=== PATIENT | female | born 1990 | race Caucasian/White ===

== ENCOUNTER 2025-03-01 07:33 | Emergency (ER) | payer MEDICAID, OTHER ==
[~2025-03-01] VITALS: Ht 167.6 cm; Wt 54.6 kg
--- NOTE | 2025-03-01 07:45 | ED.PDOC ---
Epistaxis- HPI HPI Comments 34-year-old female brought in by EMS presents with a chief complaint of epistaxis. Patient mentions that for the last 2 osorio she has been having intermittent nosebleeds. Patient reports that she recently got surgery on her nose to open up her sinuses. Patient mentions that she was supposed to see the doctor who performed the procedure today, but could not get bleeding under control. Patient mentions that she called the office and they told her to call [phone] if ever happened again. Time Seen by MD: 07:35 Reviewed Notes: Medications, Allergies Allergies: Coded Allergies: NO KNOWN ALLERGIES (Unverified , 03/01/25) Information Source: Patient Mode of Arrival: EMS Severity: Bleeding Uncontrolled Timing: Days Duration: Intermittent Prehospital treatment: Management Advisor Location: Both [facility]ises Mechanism: Spontaneous onset Use of: None History of: Recent nasal operation Last Tetanus: UTD Nose: Intranasal/Septum: Blood Bleeding Status: Active bleeding Bleeding Amount: Moderate Source: Both Past Medical History PAST MEDICAL HISTORY: Denies Surgical History: Denies all surgeries 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 Family History Family History: Reviewed,noncontributory to illness Social History Smoker: Non-Smoker Alcohol: Denies ETOH Use Drugs: Denies Drug Use Lives In: Home Constitutional: denies: chills, diaphoresis, fatigue, fever, malaise, sweats, weakness, others EENTM: reports: nose bleeding; denies: blurred vision, double vision, ear bleeding, ear discharge, ear drainage, ear pain, ear ringing, eye pain, eye redness, hearing loss, mouth pain, mouth swelling, nasal discharge, nose congestion, nose pain, photophobia, tearing, throat pain, throat swelling, voice changes, others Respiratory: denies: cough, hemoptysis, orthopnea, SOB at rest, shortness of breath, SOB with excertion, stridor, wheezing, others Cardiovascular: denies: chest pain, dizzy spells, diaphoresis, Dyspnea on exe rtion, edema, irregular heart beat, left arm pain, lightheadedness, palpitations, PND, syncope, others Gastrointestinal: denies: abdomen distended, abdominal pain, blood streaked bowels, constipated, diarrhea, dysphagia, difficulty swallowing, hematemesis, melena, nausea, poor appetite, poor fluid intake, rectal bleeding, rectal pain, vomiting, others Genitourinary: denies: abnormal vagina bleeding, burning, dyspareunia, dysuria, flank pain, frequency, hematuria, incontinence, pain, , vagina discharge, urgency, others Neurological: denies: dizziness, fainting, headache, left sided numbness, left sided weakness, numbness, paresthesia, pre-existing deficit, right sided numbness, right sided weakness, seizure, speech problems, tingling, tremors, weakness, others Musculoskeletal: denies: back pain, gout, joint pain, joint swelling, muscle pain, muscle stiffness, neck pain, others Integumetry: denies: bruises, change in color, change in hair/nails, dryness, laceration, lesions, lumps, rash, wounds, others Allergic/Immunocompromised: denies: Difficulty Healing, Frequent Infections, Hives, Itching, others Hematologic/Lymphatic: denies: anemia, blood clots, easy bleeding, easy bruising, swollen glands, others Endocrine: denies: excessive hunger, excessive sweating, excessive thirst, excessive urination, flushing, intolerance to cold, intolerance to heat, unexplained weight gain, unexplained weight loss, others Psychiatric: denies: anxiety, bipolar disorder, depression, hopeless, panic disorder, schizophrenia, sleepless, suicidal, others All Other Systems: Reviewed and Negative Physical Exam General Appearance: No Apparent Distress, Normal HEENT: Pharynx Normal, TMs Normal, Other (ACTIVE NOSE BLEED) Neck: Full Range of Motion, Non-Tender, Normal, Normal Inspection Respiratory: Chest Non-Tender, Lungs Clear, No Accessory Muscle Use, No Respiratory Distress, Normal Breath Sounds Cardiovascular: No Edema, No JVD, No Murmur, No Gallop, Normal Peripheral Pulses, Regular Rate/Rhythm Breast Exam: Deferred Gastrointestinal: No Organomegaly, Non Tender, No Pulsatile Mass, Normal Bowel Sounds, Soft Genitalia: Deferred Pelvic: Deferred Rectal: Deferred Extremities: No calf tenderness, Normal capillary refill, Normal inspection, Normal range of motion, Non-tender, No pedal edema Musculoskeletal : Apperance: Normal Neurologic: Alert, advance scout II-XII nml as Tested, No Motor Deficits, Normal Affect, Normal Mood, No Sensory Deficits Cerebellar Function: Normal Reflexes: Normal Skin: Dry, Normal Color, Warm Lymphatic: No Adenopathy Was a procedure done? Was a procedure done?: Yes Sedation Sedation?: No Nasal Cautery and Pack Indicaton: Anterior epitaxis Location of packing: Bilateral Packing: Inflatable balloon Informed consent obtained: Yes Risks/benefits/alt described: Yes Differential Diagnosis (NSB) Differential Diagnosis: Anterior Nasal Bleed, Posterior Nasal Bleed X-Ray, Labs, Meds, VS Vital Signs Date Time Temp Pulse Resp B/P (MAP) Pulse Ox O2 Delivery O2 Flow Rate FiO2 03/01/25 08:10 101 13 97 Room Air* 0 21 03/01/25 08:10 98.3 101 13 154/103 (120) 97 98.3 03/01/25 07:40 98.7 87 16 148/99 (115) 98 98.7 Current Medications Medications (Trade) Dose Ordered Sig/[place] Route Start Time Stop Time Status Last Admin Oxymetazoline HCl (Afrin) 1 spr ONCE ONCE EACHNOSTRI 03/01/25 07:45 03/01/25 07:46 DC 03/01/25 08:39 Time of 1ST Reevaluation: 08:05 Reevaluation 1ST: Unchanged Patient Education/Counseling: Diagnosis, Treatment Family Education/Counseling: No Family Present Departure 1 Departure Time of Disposition: 10:53 (Patient presented with nosebleed after nasal surgery. Patient had her nose packed hemostasis was achieved. Patient will follow up with the ENT surgeon.) Impression: Primary Impression: Epistaxis Disposition: 01 HOME / SELF CARE / HOMELESS Condition: Stable Additional Instructions: You had a nosebleed. You had bilateral rhino rockets placed. It is important to follow up with your Ear Nose and Throat surgeon within 3 days. If your symptoms worsen or you have any other concerns please return to the emergency room. Discharged With: Self Critical Care Note Critical Care Time?: No Stability Stability form required: No Heart Score Heart Score: Heart Score Response (Comments) Value History N/A 0 EKG N/A 0 Age N/A 0 Risk Factors N/A 0 Troponin N/A 0 Total 0 I personally scribed for BUZZ AMBROCIO MD ([email or web address]) on 03/01/25 at 07:45. Electronically submitted by Andrea Gooden ([email or web address]). BUZZ AMBROCIO MD March 01, 2025 07:45
[2025-03-01 08:10] VITALS: PULSE 101; RESP 13; TEMP 98.3; O2SAT 97
[2025-03-01] MEDS: OXYMETAZOLINE HCL 0.05 % NASAL SPRAY 15ML EACHNOSTRI ONE (08:39)
[2025-03-01 11:12] VITALS: BP 122/95; PULSE 86; RESP 15; O2SAT 97
== END 2025-03-01 11:24 | disposition home or self-care (01) ==
LOC: EDBD 07:33 → ER 07:33
DX: R04.0 Epistaxis (principal)
CPT/HCPCS: 30901

== ENCOUNTER 2025-03-05 12:59 | Emergency (ER) | payer MEDICAID ==
[~2025-03-05] VITALS: Ht 167.6 cm; Wt 65.0 kg
--- NOTE | 2025-03-05 13:26 | ED.PDOC ---
Epistaxis- HPI HPI Comments 34 year old female presents to the ED via EMS with a chief compliant of epistaxis. Per EMS, patient was seen here on 03/01/25 due to nose bleed, had 2 rhino rocket placed, was told to get them removed on 03/04/25. Patient went to [facility] on , was told to leave rhino rocket in place for a week. Patient began experiencing nose bleed today around noon, called 911. Denies any PMHx as well as headache, nausea, vomiting, abdominal pain, chest pain, fever, chills. No other symptoms or modifying factors present at this time. Chief Complaint: Nose Bleed Time Seen by MD: 13:05 Primary Care Provider: UNKNOWN Reviewed Notes: Medications, Allergies Allergies: Coded Allergies: NO KNOWN ALLERGIES (Unverified , 03/01/25) Information Source: Patient, Emergency Med Personnel Timing: Hours Duration: Since onset Prehospital treatment: None Location: Both [facility] Mechanism: Spontaneous onset Circumstances: Unknown Use of: None History of: Nasal bleeding Nose: Intranasal/Septum: Blood Bleeding Status: No active bleeding Bleeding Amount: Mild Source: Both Past Medical History PAST MEDICAL HISTORY: Denies Surgical History (Other): nose suegery 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 Family History Family History: Reviewed,noncontributory to illness Social History Smoker: Non-Smoker Alcohol: Denies ETOH Use Drugs: Denies Drug Use Lives In: Home Constitutional: denies: chills, diaphoresis, fatigue, fever, malaise, sweats, weakness, others EENTM: reports: nose bleeding; denies: blurred vision, double vision, ear bleeding, ear discharge, ear drainage, ear pain, ear ringing, eye pain, eye redness, hearing loss, mouth pain, mouth swelling, nasal discharge, nose congestion, nose pain, photophobia, tearing, throat pain, throat swelling, voice changes, others Respiratory: denies: cough, hemoptysis, orthopnea, SOB at rest, shortness of breath, SOB with excertion, stridor, wheezing, others Cardiovascular: denies: chest pain, dizzy spells, diaphoresis, Dyspnea on exertion, edema, irregular heart beat, left arm pain, lightheadedness, palpitations, PND, syncope, others Gastrointestinal: denies: abdomen distended, abdominal pain, blood streaked bowels, constipated, diarrhea, dysphagia, difficulty swallowing, hematemesis, melena, nausea, poor appetite, poor fluid intake, rectal bleeding, rectal pain, vomiting, others Genitourinary: denies: abnormal vagina bleeding, burning, dyspareunia, dysuria, flank pain, frequency, hematuria, incontinence, pain, , vagina discharge, urgency, others Neurological: denies: dizziness, fainting, headache, left sided numbness, left sided weakness, numbness, paresthesia, pre-existing deficit, right sided numbness, right sided weakness, seizure, speech problems, tingling, tremors, we akness, others Musculoskeletal: denies: back pain, gout, joint pain, joint swelling, muscle pain, muscle stiffness, neck pain, others Integumetry: denies: bruises, change in color, change in hair/nails, dryness, laceration, lesions, lumps, rash, wounds, others Allergic/Immunocompromised: denies: Difficulty Healing, Frequent Infections, Hives, Itching, others Hematologic/Lymphatic: denies: anemia, blood clots, easy bleeding, easy bruising, swollen glands, others Endocrine: denies: excessive hunger, excessive sweating, excessive thirst, excessive urination, flushing, intolerance to cold, intolerance to heat, unexplained weight gain, unexplained weight loss, others Psychiatric: denies: anxiety, bipolar disorder, depression, hopeless, panic disorder, schizophrenia, sleepless, suicidal, others All Other Systems: Reviewed and Negative Physical Exam General Appearance: Moderate Distress, Normal HEENT: Other (Nasal packing) Neck: Full Range of Motion, Non-Tender, Normal, Normal Inspection Respiratory: Chest Non-Tender, Lungs Clear, No Accessory Muscle Use, No Respiratory Distress, Normal Breath Sounds Cardiovascular: No Edema, No JVD, No Murmur, No Gallop, Normal Peripheral Pulses, Regular Rate/Rhythm Breast Exam: Deferred Gastrointestinal: No Organomegaly, Non Tender, No Pulsatile Mass, Normal Bowel Sounds, Soft Genitalia: Deferred Pelvic: Deferred Rectal: Deferred Extremities: No calf tenderness, Normal capillary refill, Normal inspection, Normal range of motion, Non-tender, No pedal edema Musculoskeletal : Apperance: Normal Neurologic: Alert, rigger chief II-XII nml as Tested, No Motor Deficits, Normal Affect, Normal Mood, No Sensory Deficits Cerebellar Function: Normal Reflexes: Normal Skin: Dry, Normal Color, Warm Peripheral Pulses: 3+ Radial (R), 3+ Radial (L) Lymphatic: No Adenopathy Was a procedure done? Was a procedure done?: No Differential Diagnosis (NSB) Differential Diagnosis: Anterior Nasal Bleed X-Ray, Labs, Meds, VS Vital Signs Date Time Temp Pulse Resp B/P (MAP) Pulse Ox O2 Delivery O2 Flow Rate FiO2 03/05/25 15:57 84 18 110/70 (83) 98 03/05/25 15:56 80 14 98 Room Air* 0 21 03/05/25 14:10 101 17 99 Room Air 03/05/25 14:10 98.7 95 17 118/75 (89) 99 98.7 03/05/25 13:20 98.4 101 16 131/86 (101) 99 98.4 Patient alert. Has a nasal packing in place. No sign of any active bleeding. Vitals stable. Answering questions. Recently had a rhinoplasty at [facility]. She had bilateral rhino rockets pain Explained to the patient that bilateral can cause necrosis of the tissue. Was able to remove right nostril. No sign of any bleeding. Moisture in the right nostril. No bleeding. Was told to follow up with her primary care physician. Was told to come back if there is any problem. Time of 1ST Reevaluation: 15:27 Reevaluation 1ST: Improved Patient Education/Counseling: Diagnosis, Treatment, Prognosis, Need For Follow Up Family Education/Counseling: No Family Present Departure 1 Departure Time of Disposition: 15:28 Impression: Primary Impression: Epistaxis Disposition: 01 HOME / SELF CARE / HOMELESS Condition: Good Discharged With: Self Critical Care Note Critical Care Time?: No Stability Stability form required: No Heart Score Heart Score: Heart Score Response (Comments) Value History N/A 0 EKG N/A 0 Age N/A 0 Risk Factors N/A 0 Troponin N/A 0 Total 0 I personally scribed for JUJU COLLAZO MD ([email or web address]) on 03/05/25 at 13:26. Electronically submitted by Mica Scott ([email or web address]). I personally scribed for JUJU COLLAZO MD ([email or web address]) on 5/26/25 at 14:07. Electronically submitted by Mica Scott ([email or web address]). JUJU COLLAZO MD March 05, 2025 13:26
[2025-03-05 14:10] VITALS: TEMP 98.7
[2025-03-05 15:56] VITALS: PULSE 80; RESP 14; O2SAT 98
[2025-03-05 15:57] VITALS: BP 110/70; PULSE 84; RESP 18; O2SAT 98
== END 2025-03-05 16:21 | disposition home or self-care (01) ==
LOC: EDBD 12:59 → ER 13:06
DX: R04.0 Epistaxis (principal); Z98.890 Other specified postprocedural states

== ENCOUNTER 2025-03-06 17:09 | Inpatient (IN) | payer MEDICAID ==
[~2025-03-06] VITALS: Ht 167.6 cm; Wt 60.7 kg
--- NOTE | 2025-03-06 17:47 | ED.PDOC ---
History of Present Illness HPI Comments DOUG PETTY: HPI: Poor Historian. 34-year-old female presents to emergency department for evaluation of generalized weakness. Patient had septoplasty in January. She started having bilateral nosebleed this past . She came to the ER and had two rhino rockets placed bilaterally. She had one removed yesterday. The patient is on Augmentin. Patient started developing some weakness today where she feels very tired. Denies any active bleeding. Vitals: temperature of 97.7F, pulse of 105, respiratory rate of 16, blood pressure of 120/87, and a SpO2 of 98%RA. Past Medical History: Denies any Past Surgical History: Septoplasty REVIEW OF SYSTEMS: CONSTITUTIONAL: Denies acute: fever, diaphoresis, chills, HEAD: Denies acute: headache, photophobia Eyes: Denies acute: Double vision, vision loss, eye pain, eye discharge. EARS: Denies acute: tinnitus, hearing loss, ear discharge, ear pain, THROAT: Denies acute: sore throat, swelling, difficulty swallowing , pain with swallowing, change in voice. NECK: Denies acute: neck pain, neck swelling, stiff neck. HEART: Denies acute : chest pain, palpitations, LUNGS: Denies acute: SOB, wheezing, cough, hemoptysis ABDOMEN: Denies acute: abdominal pain, Nausea, Vomiting, diarrhea, melena , hematemesis, hematochezia SKIN: Denies acute: rash, redness, lesions, itchiness. EXTREMITIES: Denies acute: calf pain, numbness, tingling, weakness, denies pain in extremity. Denies acute: Low back pain. Neuro: Denies acute: focal neurological deficit, motor or sensory focal neurological deficit, tremors, seizure like activity, confusion, dizziness, change in mental status, loss of bowel or bladder function, cauda equina like symptoms. : Denies acute: dysuria, hematuria, flank pain, increase in urinary frequency. PSYCH: Denies acute: hallucination, suicidal ideation, homicidal ideation. FEMALE: Denies acute: abnormal vaginal bleeding, foul odor, unusual discharge. PHYSICAL EXAM: General: ----mild----acute distress, awake and alert. Head: normocephalic, atraumatic. Neck: supple, trachea is midline, no swelling. Throat: Normal phonation. Eyes:, no erythema, no purulent discharge, no proptosis, no icterus. Heart: regular tachycardia,, no significant murmur appreciated. Lungs: no apparent respiratory distress, Able to speak in full sentences. No wheezing, no rhonchi, no crackles. No stridors Clear to auscultation bilaterally. Abdomen: non tender to palpation, non distended, soft, no guarding, no rebound, + bowel sounds. Neuro: Awake, Alert, oriented to name, self, situation, follows commands GCS=15. Speech is normal. Skin: no petechia, no purpura, no cyanosis, slightly-pale, not jaundice. Lower extremities: --no - Pitting edema no deformity, no focal swelling, no calf TTP. Makes eye contact. moves all four extremities. Face: no apparent facial droop. Ambulating in the ED independently. ED COURSE: Chief Complaint: General Weakness Time Seen by MD: 17:30 Primary Care Provider: UNKNOWN Reviewed Notes: Nurses Notes, Allergies Allergies: Coded Allergies: NO KNOWN ALLERGIES (Unverified , 03/01/25) Information Source: Patient Mode of Arrival: Ambulatory Was a procedure done? Was a procedure done?: No Differential Dx Considerations may include: Includes but not limited to thyroid disease, encephalopathy, electrolyte abnormality, sepsis, infection, intracranial pathology, drug adverse effects, arrhythmia, kidney insufficiency, ACS, CVA, malignancy, anemia X-Ray, Labs, Meds, VS Vital Signs Date Time Temp Pulse Resp B/P (MAP) Pulse Ox O2 Delivery O2 Flow Rate FiO2 03/06/25 23:38 98.8 88 14 133/84 (100) 100 98.8 03/06/25 17:35 97.7 105 16 120/87 (98) 98 97.7 Lab Test 03/06/25 22:34 03/06/25 18:49 03/06/25 17:50 03/06/25 17:30 Range/Units Hemoglobin 9.5 #L 11.8 L 12.2-16.2 g/dL Hematocrit 27.9 #L 33.6 L 36.0-46.0 % Troponin I High Sensitivity < 3 L < 3 L </=34 ng/L White Blood Count 5.6 4.4-10.8 10^3/uL Red Blood Count 3.86 L 4.0-5.20 10^6/uL Mean Corpuscular Volume 86.8 80.0-100.0 fL Mean Corpuscular Hemoglobin 30.6 28.0-32.0 pg Mean Corpuscular Hemoglobin Concent 35.3 32.0-36.0 g/dL Red Cell Distribution Width 12.6 11.8-14.3 % Platelet Count 353 140-450 10^3/uL Mean Platelet Volume 7.9 6.9-10.8 fL Neutrophils (%) (Auto) 56.4 37.0-80.0 % Lymphocytes (%) (Auto) 23.2 10.0-50.0 % Monocytes (%) (Auto) 17.0 H 0.0-12.0 % Eosinophils (%) (Auto) 2.9 0.0-7.0 % Basophils (%) (Auto) 0.5 0.0-2.0 % Neutrophils # (Auto) 3.1 1.6-8.6 10 ^3/uL Lymphocytes # (Auto) 1.3 0.4-5.4 10 ^3/uL Monocytes # (Auto) 0.9 0-1.3 10 ^3/uL Eosinophils # (Auto) 0.2 0-0.8 10 ^3/uL Basophils # (Auto) 0 0-0.2 10 ^3/uL Nucleated Red Blood Cells 0.1 % Sodium Level 135 L 136-145 mmol/L Potassium Level 3.5 3.5-5.1 mmol/L Chloride Level 98 98-107 mmol/L Carbon Dioxide Level 30 20-31 mmol/L Anion Gap 7 5-15 Blood Urea Nitrogen 9 9-23 mg/dL Creatinine 0.67 0.550-1.02 mg/dL Glomerular Filtration Rate Calc 119 >90 mL/min BUN/Creatinine Ratio 13.4 10.0-20.0 Serum Glucose 125 H 74-106 mg/dL Lactic Acid Level 0.9 0.4-2.0 mmol/L Calcium Level 9.9 8.7-10.4 mg/dL Magnesium Level 2.3 1.6-2.6 mg/dL Total Bilirubin 0.2 0.2-1.0 mg/dL Aspartate Amino Transferase (AST) 13 13-40 U/L Alanine Aminotransferase (ALT) 13 7-40 U/L Alkaline Phosphatase 69 46-116 U/L Total Protein 8.2 5.7-8.2 g/dL Albumin 4.9 H 3.2-4.8 g/dL Urine Color Yellow Yellow Urine Clarity Clear Clear Urine pH 6.0 5.0-9.0 Urine Specific [place] 1.021 1.001-1.035 Urine Protein Trace H Negative Urine Ketones Negative Negative Urine Blood 3+ H Negative /uL Urine Nitrite Negative Negative Urine Bilirubin Negative Negative Urine Urobilinogen 2 H Negative mg/dL Urine Leukocyte Esterase Negative Negative /uL Urine RBC 190 0 - 4 /hpf Urine Microscopic WBC 5 0-5 /HPF Urine Squamous Epithelial Cells Mod <5 /hpf Urine Bacteria Few H None Seen /hpf Urine Mucus Few None Seen Urine Glucose Normal Normal mg/dL Current Medications Medications (Trade) Dose Ordered Sig/[place] Route Start Time Stop Time Status Last Admin Sodium Chloride 1,000 ml @ 1,000 mls/hr Q1H ONCE IV 03/06/25 17:30 03/06/25 18:29 DC 03/06/25 21:23 Sodium Chloride 1,000 ml @ 1,000 mls/hr Q1H ONCE IV 03/06/25 19:15 03/06/25 20:14 DC 03/06/25 21:23 [place] [id number] Ph: [phone] DIAGNOSTIC IMAGING Diagnostic Imaging Report : [id number] Signed PATIENT: DOUG PETTY ACCT: [id number] UNIT: [id number] : 1990 LOC: ER ROOM / BED: / AGE / SEX: 34 / F ADM STATUS: REG ER SERVICE [id number] ORDERING PHYSICIAN: INGA JAMES DO PROCEDURE(s): CXRP - CHEST PORTABLE REASON: gen weak ORDER NUMBER(s): [id number], ACCESSION NUMBER(s): [id number] INDICATION: gen weak TECHNIQUE: Frontal view of the chest. COMPARISON: None FINDINGS: Findings:. The heart and mediastinal contours are grossly unremarkable. There is no evidence of pleural disease. The lungs are clear. The bony structures of the chest are intact without fracture. IMPRESSION: 1. No evidence of acute disease. ATED BY: KELLY HERNANDEZ MD DICTATED DATE/TIME: 03/06/251811 SIGNED BY: KELLY HERNANDEZ MD SIGNED DATE/TIME: 03/06/251811 CC: Time of 1ST Reevaluation: 20:56 (As of this time, patient has not yet received any the fluids that were ordered.) Reevaluation 1ST: Unchanged Time of 2ND Reevaluation: 00:00 Reevaluation 2ND: Unchanged Patient Education/Counseling: Diagnosis, Treatment Family Education/Counseling: No Family Present Comments Patient presented with the above HPI.--generalized weakness, six months from secured lightheadedness----workup was initiated. patient was found with the above mentioned diagnosis. the following medications were ordered: please refer to order lists of meds and tests obtained by myself Dr. James. Patient ED course and VS have been stabilized. Patient has been reassessed in the ED and remained in a stable condition. Pertinent incidental findings were discussed with the patient and/or family. Patient/family voices understanding and is agreeable with plan. Patient has been observed in the ED adequate length of time to insure improvement/stability. Escalation of care considered: Consideration of escalation to observation or admission Patient is given 2 L normal saline bolus. Repeat H and H shows a drop in hemoglobin. Despite fluid resuscitation, patient is still feels weak and lightheaded when she stands up. Patient was ADMITTED to the medicine team for further evaluation and treatment of their presentation. All the reports of any imaging studies that were ordered by myself were reviewed by myself. Departure 1 Departure Time of Disposition: 23:06 Impression: Primary Impression: Symptomatic anemia Additional Impression: Lightheadedness Disposition: ADMITTED INPATIENT Admit to: Tele Condition: Guarded Discharged With: Self Heart Score Heart Score: Heart Score Response (Comments) Value History Slightly Suspicious 0 EKG Normal 0 Age <45 0 Risk Factors No known risk factors 0 Troponin Normal limit 0 Total 0 I personally scribed for INGA JAMES DO ([email or web address]) on 03/06/25 at 17:47. Electronically submitted by Monica Black ([email or web address]). I personally scribed for INGA JAMES DO ([email or web address]) on 03/07/25 at 01:06. Electronically submitted by Dominic Chapman ([email or web address]). I personally scribed for INGA JAMES DO ([email or web address]) on 03/07/25 at 01:07. Electronically submitted by Dominic Chapman ([email or web address]). INGA JAMES DO March 06, 2025 17:47
[2025-03-06 17:58] LABS: Urine Bacteria FEW /hpf (None Seen); Urine Blood 3+ /uL (Negative); Urine Clarity Clear (Clear); Urine Color Yellow (Yellow); Urine Mucus FEW (None Seen); Urine Protein, UAD TRACE (Negative); Urine Specific Gravity 1.021 (1.001-1.035); Urine Squamous Epithelial Cell MOD /hpf (<5); Urine Urobilinogen 2 mg/dL (Negative); Urine WBC 5 /HPF (0-5)
[2025-03-06 18:07] LABS: Basophils # (auto) 0 10 ^3/uL (0-0.2); Basophils % (auto) 0.5 % (0.0-2.0); Eosinophils # (auto) 0.2 10 ^3/uL (0-0.8); Eosinophils % (auto) 2.9 % (0.0-7.0); Hematocrit 33.6 % (36.0-46.0); Hemoglobin 11.8 g/dL (12.2-16.2); Lymphocytes # (auto) 1.3 10 ^3/uL (0.4-5.4); Lymphocytes % (auto) 23.2 % (10.0-50.0); Mean Corpuscular Hemoglobin 30.6 pg (28.0-32.0); Mean Corpuscular Hgb Conc. 35.3 g/dL (32.0-36.0); Mean Corpuscular Volume 86.8 fL (80.0-100.0); Monocytes # (auto) 0.9 10 ^3/uL (0-1.3); Neutrophils # (auto) 3.1 10 ^3/uL (1.6-8.6); Neutrophils % (auto) 56.4 % (37.0-80.0); Nucleated Red Blood Cells % 0.1 %; Platelet Count (auto) 353 10^3/uL (140-450); Red Blood Cells 3.86 10^6/uL (4.0-5.20); Red Cell Distribution Width 12.6 % (11.8-14.3); White Blood Cell 5.6 10^3/uL (4.4-10.8)
--- NOTE | 2025-03-06 18:14 | DVH ---
INDICATION: gen weak TECHNIQUE: Frontal view of the chest. COMPARISON: None FINDINGS: Findings:. The heart and mediastinal contours are grossly unremarkable. There is no evidence of pleu ral disease. The lungs are clear. The bony structures of the chest are intact without fracture. IMPRESSION: 1. No evidence of acute disease.
[2025-03-06 18:23] LABS: Alanine Aminotransferase 13 U/L (7-40); Alkaline Phosphatase 69 U/L (46-116); Anion Gap 7 (5-15); Aspartate Aminotransferase 13 U/L (13-40); BUN/Creatinine Ratio 13.4 (10.0-20.0); Calcium 9.9 mg/dL (8.7-10.4); Carbon Dioxide 30 mmol/L (20-31); Magnesium 2.3 mg/dL (1.6-2.6); Total Protein 8.2 g/dL (5.7-8.2)
[2025-03-06 18:27] LABS: Albumin 4.9 g/dL (3.2-4.8); Bilirubin, Total 0.2 mg/dL (0.2-1.0); Blood Urea Nitrogen 9 mg/dL (9-23); Chloride 98 mmol/L (98-107); Glucose 125 mg/dL (74-106); Potassium 3.5 mmol/L (3.5-5.1); Sodium 135 mmol/L (136-145)
[2025-03-06] MEDS: SODIUM CHLORIDE 0.9% 1,000 ML IV ONE ×2 (21:23)
[2025-03-06 22:42] LABS: Hematocrit 27.9 % (36.0-46.0); Hemoglobin 9.5 g/dL (12.2-16.2)
[2025-03-07] MEDS ORDERED: ACETAMINOPHEN 325 MG TAB PO PRN
[2025-03-07] MEDS: OXYMETAZOLINE HCL 0.05 % NASAL SPRAY 15ML EACHNOSTRI SCH (01:31)
[2025-03-07] MEDS: SODIUM CHLORIDE 0.9% 1,000 ML IV SCH (01:32)
[2025-03-07] MEDS: SODIUM CHLORIDE 0.9% 1,000 ML IV ONE (01:32)
[2025-03-07 01:42] VITALS: PULSE 78; RESP 16; O2SAT 98
[2025-03-07 02:30] VITALS: BP 134/80; PULSE 78; RESP 20; TEMP 98.1; O2SAT 99
[2025-03-07 05:00] VITALS: BP 128/76; PULSE 80; RESP 20; TEMP 98.4; O2SAT 98
--- NOTE | 2025-03-07 05:09 | DVHHP2 ---
History of Present Illness Reason for Visit: epistaxis + anemia History of Present Illness This is a 34-year-old female with a past medical history notable for a Vivaer procedure (radiofrequency remodeling of the nasal valve) performed in January 2022. Since the procedure, she reports experiencing intermittent bilateral epistaxis, which has significantly worsened over the past week. This is her third ED visit for the same complaint within the past several days. She also sought care at [facility] , where she underwent nasal packing with a Rapid Rhino catheter for control of the bleeding, right now shes describing posterior nasal bleeding, despite that intervention,. She endorses associated generalized weakness and fatigue. On presentation, she was found to be tachycardic, and her hemoglobin has dropped from 11.8 to 9.5, indicating ongoing or recent blood loss. She is being admitted for further evaluation and management of epistaxis and anemia. She is scheduled to follow up with her ENT (03/07/25). Smoke: No ALCOHOL: none Drugs: None Lives: with Family Review of Systems Constitutional: No: Fever, Chills, Sweats, Weakness, Malaise, Other Eyes: No: Pain, Vision change, Conjunctivae inflammation, Eyelid inflammation, Other, Redness ENT: Other (epistaxis ); No: Ear pain, Ear discharge, Nose pain, Nose discharge, Nose congestion, Mouth pain, Mouth swelling, Throat pain, Throat swelling Respiratory: No: Cough, Dry, Shortness of breath, SOB with excertion, Wheezing, Hemoptysis, Pleuritic Pain, Sputum, Wheezing, Other Cardiovascular: No: Chest Pain, Palpitations, Orthopnea, Paroxysmal Noc. Dyspnea, Edema, Lt Headedness, Other Gastrointestinal: No: Nausea, Vomiting, Abdominal Pain, Diarrhea, Constipation, Melena, Hematochezia, Other Genitourinary: No Dysuria, No Frequency, No Incontinence, No Hematuria, No Retention, No Other Musculoskeletal: No: other, neck pain, shoulder pain, arm pain, back pain, hand pain, leg pain, foot pain Skin: No: Rash, Lesions, Jaundice, Bruising, Other Neurological: Weakness; No: Numbness, Incoordination, Change in speech, Confusion, Seizures, Other Allergies: Coded Allergies: NO KNOWN ALLERGIES (Unverified , 03/01/25) Medications Current Medications Medications Dose Ordered Sig/[place] Route Start Time Stop Time Status Last Admin Dose Admin Sodium Chloride 1,000 ml @ 60 mls/hr [id number] IV 03/07/25 00:00 03/07/25 01:32 60 MLS/HR Acetaminophen 650 mg Q6HP PRN PO 03/07/25 00:00 Oxymetazoline HCl 2 spr BID EACHNOSTRI 03/07/25 00:00 Exam Vital Signs Vital Signs Date Time Temp Pulse Resp B/P (MAP) Pulse Ox O2 Delivery O2 Flow Rate FiO2 03/07/25 02:30 98.1 78 20 134/80 (98) 99 98.1 03/07/25 01:42 Room Air* 0 21 Exam left nostril: rhino rocket, no active bleeding right nostril: erythema no active bleeding General Appearance: Alert, Oriented X3 HEENT: Atraumatic, PERRLA Respiratory: Clear to auscultation Cardiovascular: Regular rate, Normal S1 Abdominal: Normal bowel sounds, Soft Extremities: No clubbing, No cyanosis Skin: No rashes, No breakdown Neuro: Normal gait, Normal speech Psych/Mental Status: Mental status NL Labs/Xrays Labs Test 03/06/25 22:34 03/06/25 18:49 03/06/25 17:50 03/06/25 17:30 Range/Units Hemoglobin 9.5 #L 12.2-16.2 g/dL Hematocrit 27.9 #L 36.0-46.0 % Troponin I High Sensitivity < 3 L </=34 ng/L White Blood Count 5.6 4.4-10.8 10^3/uL Red Blood Count 3.86 L 4.0-5.20 10^6/uL Mean Corpuscular Volume 86.8 80.0-100.0 fL Mean Corpuscular Hemoglobin 30.6 28.0-32.0 pg Mean Corpuscular Hemoglobin Concent 35.3 32.0-36.0 g/dL Red Cell Distribution Width 12.6 11.8-14.3 % Platelet Count 353 140-450 10^3/uL Mean Platelet Volume 7.9 6.9-10.8 fL Neutrophils (%) (Auto) 56.4 37.0-80.0 % Lymphocytes (%) (Auto) 23.2 10.0-50.0 % Monocytes (%) (Auto) 17.0 H 0.0-12.0 % Eosinophils (%) (Auto) 2.9 0.0-7.0 % Basophils (%) (Auto) 0.5 0.0-2.0 % Neutrophils # (Auto) 3.1 1.6-8.6 10 ^3/uL Lymphocytes # (Auto) 1.3 0.4-5.4 10 ^3/uL Monocytes # (Auto) 0.9 0-1.3 10 ^3/uL Eosinophils # (Auto) 0.2 0-0.8 10 ^3/uL Basophils # (Auto) 0 0-0.2 10 ^3/uL Nucleated Red Blood Cells 0.1 % Sodium Level 135 L 136-145 mmol/L Potassium Level 3.5 3.5-5.1 mmol/L Chloride Level 98 98-107 mmol/L Carbon Dioxide Level 30 20-31 mmol/L Anion Gap 7 5-15 Blood Urea Nitrogen 9 9-23 mg/dL Creatinine 0.67 0.550-1.02 mg/dL Glomerular Filtration Rate Calc 119 >90 mL/min BUN/Creatinine Ratio 13.4 10.0-20.0 Serum Glucose 125 H 74-106 mg/dL Lactic Acid Level 0.9 0.4-2.0 mmol/L Calcium Level 9.9 8.7-10.4 mg/dL Magnesium Level 2.3 1.6-2.6 mg/dL Total Bilirubin 0.2 0.2-1.0 mg/dL Aspartate Amino Transferase (AST) 13 13-40 U/L Alanine Aminotransferase (ALT) 13 7-40 U/L Alkaline Phosphatase 69 46-116 U/L Total Protein 8.2 5.7-8.2 g/dL Albumin 4.9 H 3.2-4.8 g/dL Urine Color Yellow Yellow Urine Clarity Clear Clear Urine pH 6.0 5.0-9.0 Urine Specific [place] 1.021 1.001-1.035 Urine Protein Trace H Negative Urine Ketones Negative Negative Urine Blood 3+ H Negative /uL Urine Nitrite Negative Negative Urine Bilirubin Negative Negative Urine Urobilinogen 2 H Negative mg/dL Urine Leukocyte Esterase Negative Negative /uL Urine RBC 190 0 - 4 /hpf Urine Microscopic WBC 5 0-5 /HPF Urine Squamous Epithelial Cells Mod <5 /hpf Urine Bacteria Few H None Seen /hpf Urine Mucus Few None Seen Urine Glucose Normal Normal mg/dL Assessment/Plan Assessment/Plan #Symptomatic anemia #Acute blood loss #Epistaxis #sp radiofrequency ablation of nasal structure isis mercedes Admit Medsurg Oxymetazoline H&H at am Labs am Continue rhino rocket in left nostril Case discussed with Dr Crawford Full code Plan discussed with: Patient, Other (rn) My Orders Orders - TEMO MALONEY Procedure Category Date Status Time Admit ADMIT 03/06/25 Transmitted 23:46 Code Status CODE 03/06/25 Transmitted 23:46 Vital Signs SPENCER 03/06/25 In Process 23:46 Review Orders With SPENCER 03/06/25 In Process Adm. 23:46 Regular Diet DIET 03/07/25 Transmitted Breakfast Sodium Chloride 0.9% PHA 03/07/25 In Process 00:00 Acetaminophen Tablet PHA 03/07/25 In Process (Tylenol Tablet) 00:00 Notify Md Of Changes SPENCER 03/06/25 In Process From Base 23:46 Advance Directive SPENCER 03/06/25 In Process 23:46 Patient Condition ORDERS 03/06/25 Transmitted 23:46 Allergies SPENCER 03/06/25 In Process 23:46 Oxymetazoline Hcl PHA 03/07/25 In Process (Afrin) 00:00 Complete Blood Count LAB 03/07/25 Logged 04:00 PTPTT LAB 03/07/25 Logged 04:00 Date of Service: March 06, 2025 Billing Provider: TEMO MALONEY Common Visit Codes: 29184-FQKBKFE INP/OBS CARE (HIGH) Secondary Visit Codes: 90061-[id number] CARE PLAN 30 MINUTES TEMO MALONEY March 07, 2025 05:09
[2025-03-07 06:48] LABS: Basophils # (auto) 0 10 ^3/uL (0-0.2); Basophils % (auto) 0.4 % (0.0-2.0); Eosinophils # (auto) 0.1 10 ^3/uL (0-0.8); Eosinophils % (auto) 3.3 % (0.0-7.0); Hemoglobin 9.7 g/dL (12.2-16.2); INR 1.03 (0.9-1.15); Lymphocytes # (auto) 1.4 10 ^3/uL (0.4-5.4); Lymphocytes % (auto) 33.8 % (10.0-50.0); Mean Corpuscular Hemoglobin 30.2 pg (28.0-32.0); Mean Corpuscular Hgb Conc. 34.5 g/dL (32.0-36.0); Mean Corpuscular Volume 87.5 fL (80.0-100.0); Monocytes # (auto) 0.6 10 ^3/uL (0-1.3); Monocytes % (auto) 13.4 % (0.0-12.0); Neutrophils % (auto) 49.1 % (37.0-80.0); Nucleated Red Blood Cells % 0.1 %; Partial Thromboplastin Time 26.4 SEC (24.5-34.5); Platelet Count (auto) 274 10^3/uL (140-450); Prothrombin Time 10.9 sec (9.3-11.8); Red Cell Distribution Width 12.4 % (11.8-14.3); White Blood Cell 4.2 10^3/uL (4.4-10.8)
[2025-03-07 07:03] LABS: Alanine Aminotransferase 14 U/L (7-40); Albumin 3.9 g/dL (3.2-4.8); Alkaline Phosphatase 54 U/L (46-116); Anion Gap 7 (5-15); BUN/Creatinine Ratio 13.6 (10.0-20.0); Carbon Dioxide 26 mmol/L (20-31); Glucose 103 mg/dL (74-106); Sodium 141 mmol/L (136-145); Total Protein 6.5 g/dL (5.7-8.2)
[2025-03-07 07:08] LABS: Aspartate Aminotransferase 11 U/L (13-40); Bilirubin, Total 0.2 mg/dL (0.2-1.0); Blood Urea Nitrogen 8 mg/dL (9-23); Calcium 8.7 mg/dL (8.7-10.4); Chloride 108 mmol/L (98-107); Potassium 3.5 mmol/L (3.5-5.1)
[2025-03-07 08:15] VITALS: BP 128/76; PULSE 80; RESP 20; TEMP 98.4; O2SAT 98
--- NOTE | 2025-03-07 15:33 | DVHDSRES ---
Discharge Summary Date of Admission Resident Creating Document: BABITA CROWELL RESIDENT March 06, 2025 at 23:46 Date of Discharge: March 07, 2025 Admitting Diagnosis #Symptomatic anemia #Acute blood loss #Epistaxis #sp radiofrequency ablation of nasal structure isis mercedes Wounds: none Labs/Diagnostic Data: Laboratory Results Test 03/07/25 05:58 03/06/25 18:49 03/06/25 17:50 03/06/25 17:30 White Blood Count 4.2 10^3/uL (4.4-10.8) Red Blood Count 3.20 10^6/uL (4.0-5.20) Hemoglobin 9.7 g/dL (12.2-16.2) Hematocrit 28.0 % (36.0-46.0) Mean Corpuscular Volume 87.5 fL (80.0-100.0) Mean Corpuscular Hemoglobin 30.2 pg (28.0-32.0) Mean Corpuscular Hemoglobin Concent 34.5 g/dL (32.0-36.0) Red Cell Distribution Width 12.4 % (11.8-14.3) Platelet Count 274 10^3/uL (140-450) Mean Platelet Volume 7.9 fL (6.9-10.8) Neutrophils (%) (Auto) 49.1 % (37.0-80.0) Lymphocytes (%) (Auto) 33.8 % (10.0-50.0) Monocytes (%) (Auto) 13.4 % (0.0-12.0) Eosinophils (%) (Auto) 3.3 % (0.0-7.0) Basophils (%) (Auto) 0.4 % (0.0-2.0) Neutrophils # (Auto) 2.0 10 ^3/uL (1.6-8.6) Lymphocytes # (Auto) 1.4 10 ^3/uL (0.4-5.4) Monocytes # (Auto) 0.6 10 ^3/uL (0-1.3) Eosinophils # (Auto) 0.1 10 ^3/uL (0-0.8) Basophils # (Auto) 0 10 ^3/uL (0-0.2) Nucleated Red Blood Cells 0.1 % Prothrombin Time 10.9 sec (9.3-11.8) Prothrombin Time INR 1.03 (0.9-1.15) Activated Partial Thromboplast Time 26.4 SEC (24.5-34.5) Sodium Level 141 mmol/L (136-145) Potassium Level 3.5 mmol/L (3.5-5.1) Chloride Level 108 mmol/L (98-107) Carbon Dioxide Level 26 mmol/L (20-31) Anion Gap 7 (5-15) Blood Urea Nitrogen 8 mg/dL (9-23) Creatinine 0.59 mg/dL (0.550-1.02) Glomerular Filtration Rate Calc 123 mL/min (>90) BUN/Creatinine Ratio 13.6 (10.0-20.0) Serum Glucose 103 mg/dL (74-106) Calcium Level 8.7 mg/dL (8.7-10.4) Total Bilirubin 0.2 mg/dL (0.2-1.0) Aspartate Amino Transferase (AST) 11 U/L (13-40) Alanine Aminotransferase (ALT) 14 U/L (7-40) Alkaline Phosphatase 54 U/L (46-116) Total Protein 6.5 g/dL (5.7-8.2) Albumin 3.9 g/dL (3.2-4.8) Thyroid Stimulating Hormone (TSH) 1.01 uIU/mL (0.55-4.78) Troponin I High Sensitivity < 3 ng/L (</=34) Lactic Acid Level 0.9 mmol/L (0.4-2.0) Magnesium Level 2.3 mg/dL (1.6-2.6) Urine Color Yellow (Yellow) Urine Clarity Clear (Clear) Urine pH 6.0 (5.0-9.0) Urine Specific [place] 1.021 (1.001-1.035) Urine Protein Trace (Negative) Urine Ketones Negative (Negative) Urine Blood 3+ /uL (Negative) Urine Nitrite Negative (Negative) Urine Bilirubin Negative (Negative) Urine Urobilinogen 2 mg/dL (Negative) Urine Leukocyte Esterase Negative /uL (Negative) Urine RBC 190 /hpf (0 - 4) Urine Microscopic WBC 5 /HPF (0-5) Urine Squamous Epithelial Cells Mod /hpf (<5) Urine Bacteria Few /hpf (None Seen) Urine Mucus Few (None Seen) Urine Glucose Normal mg/dL (Normal) Other Laboratory Tests 03/07/25 05:58 Brief Hx & Hospital Course: This is a 34-year-old female with a past medical history notable for a Vivaer procedure (radiofrequency remodeling of the nasal valve) performed in January 2022. Since the procedure, she reports experiencing intermittent bilateral epistaxis, which has significantly worsened over the past week. This is her third ED visit for the same complaint within the past several days. She also sought care at [facility] , where she underwent nasal packing with a Rapid Rhino catheter for control of the bleeding, right now shes describing posterior nasal bleeding, despite that intervention. She endorses associated generalized weakness and fatigue. On presentation, she was found to be tachycardic, and her hemoglobin has dropped from 11.8 to 9.5, indicating ongoing or recent blood loss. Hemoglobin and hematocrit were repeated in a few hours add hemoglobin was stable at 9.7 g/dL. Patient reported that she had an appointment with her ENT surgeon in [place] at 1100 hours on 03/07/2025. Patient was stable and no active bleeding was seen, she was discharged to follow up with her ENT surgeon for further management. Plan discussed with Consults/Reason for consult none Operations or Procedures none Condition at Discharge: Good Final Diagnosis/Problems List #Symptomatic anemia #Acute blood loss #Epistaxis #sp radiofrequency ablation of nasal structure isis mercedes Discharge Disposition: Home Discharge Instruct/Medications Diet: Regular Activity: No Restrictions, As Tolerated Follow Up/Referral: Follow up with the ENT surgeon as scehduled today 03/07/2025 Medications: as per EMR Discharge Statement: "Patient was advised to return to the ER or call 911 if any headaches, dizziness, shortness of breath, chest pain, abdominal pain, bleeding, fevers, or worsening of medical condition. Patient was counseled about treatment plan, medications, possible side effects, patientverbalized understanding. All questions were answered to the best of my ability. This discharge took greater then 30 minutes in planning, reviewing documentation, counseling the patient, and discussing with other team members." ASSESSMENT ASSESSMENT Assessment #Symptomatic anemia #Acute blood loss #Epistaxis #sp radiofrequency ablation of nasal structure isis mercedes Date of Service: March 07, 2025 Billing Provider: CHRIS WIGGINS MD Common Visit Codes: 34811-XKG/OBS DISCH DAY >30min BABITA CROWELL RESIDENT March 07, 2025 15:33 CHRIS WIGGINS MD March 08, 2025 15:03
== END 2025-03-07 09:30 | disposition home or self-care (01) | DRG 663 ==
LOC: ER 17:09 → OVERFLOW 23:46
PROVIDERS: ADMIT Internal Medicine; ATTEND Internal Medicine
DX: D62 Acute posthemorrhagic anemia (principal); R04.0 Epistaxis; D64.9 Anemia, unspecified
CPT/HCPCS: 36415; 71045; 80053; 81001; 83605; 83735; 84443; 84484; 85014; 85018; 85025; 85610; 85730; 86850; 86900; 86901; 96360; 96361; G0378

== ENCOUNTER 2025-03-18 16:26 | Emergency (ER) | payer MEDICAID ==
[~2025-03-18] VITALS: Ht 167.6 cm; Wt 63.7 kg
[2025-03-18 16:58] LABS: Urine Bacteria None Seen /hpf (None Seen)
[2025-03-18 17:03] LABS: Urine Blood Negative /uL (Negative); Urine Clarity Clear (Clear); Urine Color Colorless (Yellow); Urine Protein, UAD Negative (Negative); Urine Squamous Epithelial Cell FEW /hpf (<5); Urine Urobilinogen Normal (Negative); Urine WBC 1 /HPF (0-5); Urine pH 6.5 (5.0-9.0)
[2025-03-18] MEDS: ONDANSETRON ODT 4 MG TAB PO ONE (17:08)
[2025-03-18] MEDS: DICYCLOMINE HCL (10MG/ML) 2 ML AMPULE IM ONE (17:08)
--- NOTE | 2025-03-18 17:08 | ED.PDOC ---
GI ASSESSMENT HPI Comments 35 year old female presents to the ED with a chief complaint of abdominal pain onset 1 day. Patient states she has been experiencing abdominal pain as well as nausea/vomiting for the past day, headache for the past 10 days. Patient recently had a rhinoplasty procedure performed and subsequent to that event, has had postoperative complications including bleeding concerns. Patient was seen in this ED on 03/06/25, due to generalized weakness, had a rhino rocket installed and subsequently removed. Denies any PMHx as well as chest pain, shortness of breath, dizziness, hematemesis. No other symptoms or modifying factors present at this time. Chief Complaint: Abdominal Pain Time Seen by MD: 16:45 Primary Care Provider: UNKNOWN Reviewed Notes: Nurses Notes, Medications, Allergies Allergies: Coded Allergies: NO KNOWN ALLERGIES (Unverified , 03/01/25) Home Meds Unable to Obtain Active Prescriptions or Reported Meds Information Source: Patient Mode of Arrival: Ambulatory Timing: Days Duration: Since onset Prehospital treatment: None Quality: Sharp Vomitus: Food Particles, Soft, Watery Severity: Moderate Recent: None Recent Hx of: None Pain Location: Diffuse Associated sign and symptoms: Nausea, Vomiting, Abdominal Pain Past Medical History PAST MEDICAL HISTORY: Denies Surgical History (Other): Recent rhinoplasty procedure THERAPEUTIC DIETITIAN History: Denies all THERAPEUTIC DIETITIAN Hx Family History Family History: Reviewed,noncontributory to illness Social History Smoker: Non-Smoker Alcohol: Denies ETOH Use Drugs: Denies Drug Use Lives In: Home Constitutional: denies: chills, diaphoresis, fatigue, fever, malaise, sweats, weakness, others EENTM: denies: blurred vision, double vision, ear bleeding, ear discharge, ear drainage, ear pain, ear ringing, eye pain, eye redness, hearing loss, mouth pain, mouth swelling, nasal discharge, nose bleeding, nose congestion, nose pain, photophobia, tearing, throat pain, throat swelling, voice changes, others Respiratory: denies: cough, hemoptysis, orthopnea, SOB at rest, shortness of breath, SOB with excertion, stridor, wheezing, others Cardiovascular: denies: chest pain, dizzy spells, diaphoresis, Dyspnea on exertion, edema, irregular heart beat, left arm pain, lightheadedness, palpitations, PND, syncope, others Gastrointestinal: reports: abdominal pain, nausea, vomiting; denies: abdomen distended, blood streaked bowels, constipated, diarrhea, dysphagia, difficulty swallowing, hematemesis, melena, poor appetite, poor fluid intake, rectal bleeding, rectal pain, others Genitourinary: denies: abnormal vagina bleeding, burning, dyspareunia, dysuria, flank pain, frequency, hematuria, incontinence, pain, , vagina discharge, urgency, others Neurological: reports: headache; denies: dizziness, fainting, left sided numbness, left sided weakness, numbness, paresthesia, pre-existing deficit, right sided numbness, right sided weakness, seizure, speech problems, tingling, tremors, weakness, others Musculoskeletal: denies: back pain, gout, joint pain, joint swelling, muscle pain, muscle stiffness, neck pain, others Integumetry: denies: bruises, change in color, change in hair/nails, dryness, laceration, lesions, lumps, rash, wounds, others Allergic/Immunocompromised: denies: Difficulty Healing, Frequent Infections, Hives, Itching, others Hematologic/Lymphatic: denies: anemia, blood clots, easy bleeding, easy bruising, swollen glands, others Endocrine: denies: excessive hunger, excessive sweating, excessive thirst, excessive urination, flushing, intolerance to cold, intolerance to heat, unexplained weight gain, unexplained weight loss, others Psychiatric: denies: anxiety, bipolar disorder, depression, hopeless, panic disorder, schizophrenia, sleepless, suicidal, others All Other Systems: Reviewed and Negative Physical Exam General Appearance: Mild Distress (Moderate distress due to her chief complaints. Patient did not look toxic.), Normal HEENT: Normal ENT Inspection, Pharynx Normal, TMs Normal Neck: Full Range of Motion, Non-Tender, Normal, Normal Inspection Respiratory: Chest Non-Tender, Lungs Clear, No Accessory Muscle Use, No Respiratory Distress, Normal Breath Sounds Cardiovascular: No Edema, No JVD, No Murmur, No Gallop, Normal Peripheral Pulses, Regular Rate/Rhythm Breast Exam: Deferred Gastrointestinal: No Organomegaly, Non Tender, No Pulsatile Mass, Normal Bowel Sounds, Soft Genitalia: Deferred Pelvic: Deferred Rectal: Deferred Extremities: No calf tenderness, Normal capillary refill, Normal inspection, Normal range of motion, Non-tender, No pedal edema Musculoskeletal : Apperance: Normal Neurologic: Alert, No Motor Deficits, Normal Affect, Normal Mood, No Sensory Deficits Cerebellar Function: Normal Reflexes: Normal Skin: Dry, Normal Color, Warm Lymphatic: No Adenopathy Was a procedure done? Was a procedure done?: No GI differential Dx Differential Diagnosis: Other (He has a pruritus, food toxicity, nausea and vomiting) X-Ray, Labs, Meds, VS Vital Signs Date Time Temp Pulse Resp B/P (MAP) Pulse Ox O2 Delivery O2 Flow Rate FiO2 03/18/25 16:40 98.8 93 16 116/86 (96) 99 98.8 Lab Test 03/18/25 16:47 Range/Units Urine Color Colorless Yellow Urine Clarity Clear Clear Urine pH 6.5 5.0-9.0 Urine Specific [place] 1.010 1.001-1.035 Urine Protein Negative Negative Urine Ketones Negative Negative Urine Blood Negative Negative /uL Urine Nitrite Negative Negative Urine Bilirubin Negative Negative Urine Urobilinogen Normal Negative mg/dL Urine Leukocyte Esterase Negative Negative /uL Urine RBC None seen 0 - 4 /hpf Urine Microscopic WBC 1 0-5 /HPF Urine Squamous Epithelial Cells Few <5 /hpf Urine Bacteria None seen None Seen /hpf Urine Glucose Normal Normal mg/dL Urine Test Negative Negative Current Medications Medications (Trade) Dose Ordered Sig/[place] Route Start Time Stop Time Status Last Admin Ondansetron HCl (Zofran Po) 4 mg ONCE ONCE PO 03/18/25 17:00 03/18/25 17:01 DC 03/18/25 17:08 Dicyclomine HCl (Bentyl Injection) 20 mg ONCE ONCE IM 03/18/25 17:00 03/18/25 17:01 DC 03/18/25 17:08 X-Ray, Labs, Meds, VS Comment Spent time discussing the patient's concerns with her. Patient responded well to medication dispensed. Advised the patient that her urinalysis was unremarkable for any urinary contribution. Patient appears to have a small virus while dealing with her postoperative concerns. Advised patient utilize medication as needed and continue follow up with surgeon for evaluation of rhinoplasty concerns. Time of 1ST Reevaluation: 17:24 Reevaluation 1ST: Improved Consultation: PCP, Surgery Patient Education/Counseling: Diagnosis, Treatment, Prognosis Family Education/Counseling: Diagnosis, Treatment, No Family Present Departure 1 Departure Time of Disposition: 17:24 Impression: Primary Impression: Gastroenteritis Disposition: 01 HOME / SELF CARE / HOMELESS Condition: Stable Additional Instructions: Advise utilizing medication as needed for symptomatic relief as well as good hydration and healthy nutrition for the next few weeks. Continue follow up with surgeon for management of postoperative concerns. e-Prescriptions Dicyclomine Hcl (BENTYL CAPSULE) 10 Mg Cp 1 CAP PO Q6HPRN, #15 CAP 0 Refills Prov: SHONDA WILSON PAC 03/18/25 Ondansetron Odt 4MG Tab (ZOFRAN PO) 4 Mg Tb 4 MG PO Q6HP PRN, #15 TAB ODT TAB-DISSOLVE IN MOUTH, THEN SWALLOW Prov: SHONDA WILSON PAC 03/18/25 Discharged With: Self, Friend Critical Care Note Critical Care Time?: No Stability Stability form required: No Heart Score Heart Score: Heart Score Response (Comments) Value History N/A 0 EKG N/A 0 Age N/A 0 Risk Factors N/A 0 Troponin N/A 0 Total 0 I personally scribed for SHONDA WILSON PAC ([email or web address]) on 03/18/25 at 17:08. Electronically submitted by Mica Scott ([email or web address]). SHONDA WILSON PAC Mar 18, 2025 17:08
[2025-03-18 17:15] VITALS: BP 114/86; PULSE 88; RESP 18; TEMP 97.1; O2SAT 100
[2025-03-18] MEDS ORDERED: DICY10CA PO (17:26)
[2025-03-18] MEDS ORDERED: ZOFR4T PO (17:26)
== END 2025-03-18 17:36 | disposition home or self-care (01) ==
LOC: ER 16:32
DX: K52.9 Noninfective gastroenteritis and colitis, unspecified (principal); Z98.890 Other specified postprocedural states
CPT/HCPCS: 81001; 81025; 96372; 99283; J0500; Q0162

== ENCOUNTER 2025-03-24 19:25 | Emergency (ER) | payer MEDICAID ==
[~2025-03-24] VITALS: Ht 167.6 cm; Wt 64.0 kg
[~2025-03-24 19:25] MED LIST: DICY10CA PO; ZOFR4T PO
[2025-03-24 19:45] VITALS: BP 132/82; PULSE 82; RESP 16; TEMP 99.3; O2SAT 100
[2025-03-24] MEDS ORDERED: MUPI2OIN2 (20:08)
--- NOTE | 2025-03-24 20:08 | ED.PDOC ---
Eye-HPI HPI Comments Pt presents to the ER due to nose pain. Pt states she had nasal sx in January and noticed a white bump to the inside of lft nare. Pt reports pain and discomfort. No swelling or drainage noted to nares. RR even and unlabored, SPO2 100% on RA. Denies fevers, chills, nausea, vomiting, or bleeding Time Seen by MD: 19:29 Primary Care Provider: UNKNOWN Reviewed Notes: Nurses Notes, Medications, Allergies Allergies: Coded Allergies: NO KNOWN ALLERGIES (Unverified , 03/01/25) Home Meds Active Scripts Metoclopramide Hcl (Reglan) 5 Mg Tab, 5 MG PO Q8HP PRN for 2 Days, #6 TAB Prov:TEQUILA BACA MD 03/25/25 Mupirocin (Pseudomonas Fluores (Mupirocin) 2 % Oin, 1 APPLIC JESE BID for 7 Days, #15 GRAMS Half fingebreabth (0.5 CM) into left nare twice daily x 7 days Prov:CON EASTON 03/24/25 Dicyclomine Hcl (BENTYL CAPSULE) 10 Mg Cp, 1 CAP PO Q6HPRN, #15 CAP 0 Refills Prov:SHONDA WILSON PAC 03/18/25 Ondansetron Odt 4MG Tab (ZOFRAN PO) 4 Mg Tb, 4 MG PO Q6HP PRN, #15 TAB ODT TAB-DISSOLVE IN MOUTH, THEN SWALLOW Prov:SHONDA WILSON PAC 03/18/25 Discontinued Scripts Mupirocin (Pseudomonas Fluores (Mupirocin) 2 % Oin, 1 APPLIC NA BID for 7 Days, #15 GRAMS Prov:CON EASTON 03/24/25 Information Source: Patient Past Medical History PAST MEDICAL HISTORY: Denies Surgical History: Denies all surgeries 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 Family History Family History: Reviewed,noncontributory to illness Social History Smoker: Non-Smoker Alcohol: Denies ETOH Use Drugs: Denies Drug Use Lives In: Home Constitutional: denies: chills, diaphoresis, fatigue, fever, malaise, sweats, weakness, others EENTM: reports: nose pain; denies: blurred vision, double vision, ear bleeding, ear discharge, ear drainage, ear pain, ear ringing, eye pain, eye redness, hearing loss, mouth pain, mouth swelling, nasal discharge, nose bleeding, nose congestion, photophobia, tearing, throat pain, throat swelling, voice changes, others Respiratory: denies: cough, hemoptysis, orthopnea, SOB at rest, shortness of breath, SOB with excertion, stridor, wheezing, others Cardiovascular: denies: chest pain, dizzy spells, diaphoresis, Dyspnea on exertion, edema, irregular heart beat, left arm pain, lightheadedness, palpitations, PND, syncope, others Gastrointestinal: denies: abdomen distended, abdominal pain, blood streaked bowels, constipated, diarrhea, dysphagia, difficulty swallowing, hematemesis, melena, nausea, poor appetite, poor fluid intake, rectal bleeding, rectal pain, vomiting, others Genitourinary: denies: abnormal vagina bleeding, burning, dyspareunia, dysuria, flank pain, frequency, hematuria, incontinence, pain, , vagina discharge, urgency, others Neurological: denies: dizziness, fainting, headache, left sided numbness, left sided weakness, numbness, paresthesia, pre-existing deficit, right sided numbness, right sided weakness, seizure, speech problems, tingling, tremors, weakness, others Musculoskeletal: denies: back pain, gout, joint pain, joint swelling, muscle pain, muscle stiffness, neck pain, others Integumetry: denies: bruises, change in color, change in hair/nails, dryness, laceration, lesions, lumps, rash, wounds, others Allergic/Immunocompromised: denies: Difficulty Healing, Frequent Infections, Hives, Itching, others Hematologic/Lymphatic: denies: anemia, blood clots, easy bleeding, easy bruising, swollen glands, others Endocrine: denies: excessive hunger, excessive sweating, excessive thirst, excessive urination, flushing, intolerance to cold, intolerance to heat, unexplained weight gain, unexplained weight loss, others Psychiatric: denies: anxiety, bipolar disorder, depression, hopeless, panic disorder, schizophrenia, sleepless, suicidal, others Physical Exam General Appearance: No Apparent Distress, Normal HEENT: Pharynx Normal, TMs Normal, Other (Noted white greenish foreign body partially hanging out of left near. Removed without difficulty, appears to be possibly shaved bone or post surgical stent. No noted bleeding or drainage patient. ) Neck: Full Range of Motion, Non-Tender, Normal, Normal Inspection Respiratory: Lungs Clear, No Respiratory Distress, Normal Breath Sounds Cardiovascular: No Murmur, Normal Peripheral Pulses, Regular Rate/Rhythm Breast Exam: Deferred Gastrointestinal: Non Tender, Soft Genitalia: Deferred Pelvic: Deferred Rectal: Deferred Extremities: Normal range of motion Musculoskeletal : Apperance: Normal Neurologic: Alert, No Motor Deficits, Normal Affect, Normal Mood, No Sensory Deficits Cerebellar Function: Normal Reflexes: Normal Skin: Dry, Normal Color, Warm Lymphatic: No Adenopathy Was a procedure done? Was a procedure done?: No EENT DIFF Eye: N/A Ear: N/A Nose: Anterior Nasal Bleed, Posterior Nasal Bleed, Foreign Body X-Ray, Labs, Meds, VS Vital Signs Date Time Temp Pulse Resp B/P (MAP) Pulse Ox O2 Delivery O2 Flow Rate FiO2 03/24/25 19:45 99.3 82 16 132/82 (99) 100 99.3 X-Ray, Labs, Meds, VS Comment Foreign body placed in a urine sample cup. Advised patient to call his surgeon take a picture of the foreign body to identify. Advised to follow up with her post surgical appointment. Trial Bactroban ointment left nare prophylactic. Advised on ER return precautions patient indicates understanding and agrees with discharge plan of care. Time of 1ST Reevaluation: 19:29 Reevaluation 1ST: Unchanged Time of 2ND Reevaluation: 20:03 Reevaluation 2ND: Improved Patient Education/Counseling: Diagnosis, Treatment, Prognosis, Need For Follow Up Family Education/Counseling: No Family Present Departure 1 Departure Time of Disposition: 20:03 Impression: Primary Impression: Blister of nose with infection Qualified Codes: S00.32XA - Blister (nonthermal) of nose, initial encounter; L08.9 - Local infection of the skin and subcutaneous tissue, unspecified Disposition: 01 HOME / SELF CARE / HOMELESS Condition: Stable e-Prescriptions Mupirocin (Pseudomonas Fluores (Mupirocin) 2 % Oin 1 APPLIC JESE BID for 7 Days, #15 GRAMS Half fingebreabth (0.5 CM) into left nare twice daily x 7 days Prov: CON EASTON 03/24/25 Discharged With: Self Critical Care Note Critical Care Time?: No Stability Stability form required: No CON EASTON Mar 24, 2025 20:08
[2025-03-24] MEDS ORDERED: MUPI2OIN2 NAS (20:14)
[2025-03-25] MEDS ORDERED: METO5TAB67 PO (17:03)
== END 2025-03-24 20:16 | disposition home or self-care (01) ==
LOC: ER 19:25
DX: S00.32XA Blister (nonthermal) of nose, initial encounter (principal); L08.9 Local infection of the skin and subcutaneous tissue, unspecified; Z79.899 Other long term (current) drug therapy; X58.XXXA Exposure to other specified factors, initial encounter; Y93.89 Activity, other specified; Y92.89 Other specified places as the place of occurrence of the external cause; Y99.8 Other external cause status

== ENCOUNTER 2025-03-24 22:48 | Emergency (ER) | payer MEDICAID ==
[~2025-03-24 22:48] MED LIST changes: +MUPI2OIN2; +MUPI2OIN2 NAS
[2025-03-25] MEDS ORDERED: METO5TAB67 PO (17:03)
== END 2025-03-24 23:36 | disposition left against medical advice (07) ==
LOC: ER 22:48
DX: S00.30XA Unspecified superficial injury of nose, initial encounter (principal); Z53.21 Procedure and treatment not carried out due to patient leaving prior to being seen by health care provider; X58.XXXA Exposure to other specified factors, initial encounter; Y93.89 Activity, other specified; Y92.89 Other specified places as the place of occurrence of the external cause; Y99.8 Other external cause status

== ENCOUNTER 2025-03-25 16:00 | Emergency (ER) | payer MEDICAID ==
[~2025-03-25 16:00] MED LIST changes: -MUPI2OIN2
[2025-03-25 16:11] VITALS: TEMP 99.6
--- NOTE | 2025-03-25 16:13 | ED.PDOC ---
GI ASSESSMENT HPI Comments 35 y/o F, presents to the ED for CC of nausea without vomiting. Patient states, she had procedure done yesterday (03/25/25) to remove a nasal blister and is now experiencing nausea. Patient relays, that she believes to have swallowed blood during procedure which may be causing her symptoms. Patient denies fever, chills, vomiting, or diarrhea. No other symptoms or modifying factors present at this time. Time Seen by MD: 16:09 Primary Care Provider: Dr. Marquez Reviewed Notes: Nurses Notes, Medications, Allergies Allergies: Coded Allergies: NO KNOWN ALLERGIES (Unverified , 03/01/25) Home Meds Active Scripts Mupirocin (Pseudomonas Fluores (Mupirocin) 2 % Oin, 1 APPLIC JESE BID for 7 Days, #15 GRAMS Half fingebreabth (0.5 CM) into left nare twice daily x 7 days Prov:CON EASTON [facility] 03/24/25 Dicyclomine Hcl (BENTYL CAPSULE) 10 Mg Cp, 1 CAP PO Q6HPRN, #15 CAP 0 Refills Prov:SHONDA WILSON [facility] 03/18/25 Ondansetron Odt 4MG Tab (ZOFRAN PO) 4 Mg Tb, 4 MG PO Q6HP PRN, #15 TAB ODT TAB-DISSOLVE IN MOUTH, THEN SWALLOW Prov:SHONDA WILSON [facility] 03/18/25 Discontinued Scripts Mupirocin (Pseudomonas Fluores (Mupirocin) 2 % Oin, 1 APPLIC NA BID for 7 Days, #15 GRAMS Prov:CON EASTON [facility] 03/24/25 Information Source: Patient Mode of Arrival: Ambulatory Timing: Days Duration: Since onset Prehospital treatment: None Quality: None Vomitus: None Severity: Moderate Recent: None Recent Hx of: None Pain Location: Diffuse Associated sign and symptoms: Abdominal Pain Past Medical History PAST MEDICAL HISTORY: Denies 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 Family History Family History: Reviewed,noncontributory to illness Social History Smoker: Non-Smoker Alcohol: Denies ETOH Use Drugs: Denies Drug Use Lives In: Home Constitutional: denies: chills, diaphoresis, fatigue, fever, malaise, sweats, weakness, others EENTM: denies: blurred vision, double vision, ear bleeding, ear discharge, ear drainage, ear pain, ear ringing, eye pain, eye redness, hearing loss, mouth pain, mouth swelling, nasal discharge, nose bleeding, nose congestion, nose pain, photophobia, tearing, throat pain, throat swelling, voice changes, others Respiratory: denies: cough, hemoptysis, orthopnea, SOB at rest, shortness of breath, SOB with excertion, stridor, wheezing, others Cardiovascular: denies: chest pain, dizzy spells, diaphoresis, Dyspnea on exertion, edema, irregular heart beat, left arm pain, lightheadedness, palpitations, PND, syncope, others Gastrointestinal: reports: nausea; denies: abdomen distended, abdominal pain, blood streaked bowels, constipated, diarrhea, dysphagia, difficulty swallowing, hematemesis, melena, poor appetite, poor fluid intake, rectal bleeding, rectal pain, vomiting, others Genitourinary: denies: abnormal vagina bleeding, burning, dyspareunia, dysuria, flank pain, frequency, hematuria, incontinence, pain, , vagina discharge, urgency, others Neurological: denies: dizziness, fainting, headache, left sided numbness, left sided weakness, numbness, paresthesia, pre-existing deficit, right sided numbness, right sided weakness, seizure, speech problems, tingling, tremors, we akness, others Musculoskeletal: denies: back pain, gout, joint pain, joint swelling, muscle pain, muscle stiffness, neck pain, others Integumetry: denies: bruises, change in color, change in hair/nails, dryness, laceration, lesions, lumps, rash, wounds, others Allergic/Immunocompromised: denies: Difficulty Healing, Frequent Infections, Hives, Itching, others Hematologic/Lymphatic: denies: anemia, blood clots, easy bleeding, easy bruising, swollen glands, others Endocrine: denies: excessive hunger, excessive sweating, excessive thirst, excessive urination, flushing, intolerance to cold, intolerance to heat, unexplained weight gain, unexplained weight loss, others Psychiatric: denies: anxiety, bipolar disorder, depression, hopeless, panic disorder, schizophrenia, sleepless, suicidal, others All Other Systems: Reviewed and Negative Physical Exam General Appearance: No Apparent Distress, Normal HEENT: Normal ENT Inspection, Pharynx Normal Neck: Full Range of Motion, Non-Tender, Normal, Normal Inspection Respiratory: Chest Non-Tender, Lungs Clear, No Accessory Muscle Use, No Respiratory Distress, Normal Breath Sounds Cardiovascular: No Edema, No Murmur, No Gallop, Normal Peripheral Pulses, Regular Rate/Rhythm Breast Exam: Deferred Gastrointestinal: No Organomegaly, Non Tender, No Pulsatile Mass, Normal Bowel Sounds, Soft Genitalia: Deferred Pelvic: Deferred Rectal: Deferred Extremities: No calf tenderness, Normal capillary refill, Normal inspection, Normal range of motion, Non-tender, No pedal edema Musculoskeletal : Apperance: Normal Neurologic: Alert, meat wrapper II-XII nml as Tested, No Motor Deficits, Normal Affect, Normal Mood, No Sensory Deficits Cerebellar Function: Normal Reflexes: Normal Skin: Dry, Normal Color, Warm Lymphatic: No Adenopathy Was a procedure done? Was a procedure done?: No GI differential Dx Differential Diagnosis: Gastritis/PUD, Gastroenteritis, Electrolyte Imbalance, Food Poisoning, Bacterial, Viral X-Ray, Labs, Meds, VS Vital Signs Date Time Temp Pulse Resp B/P (MAP) Pulse Ox O2 Delivery O2 Flow Rate FiO2 03/25/25 16:11 99.6 86 17 128/75 (92) 98 99.6 Lab Test 03/25/25 16:20 03/25/25 16:18 Range/Units Urine Test Negative Negative White Blood Count 5.2 4.4-10.8 10^3/uL Red Blood Count 4.18 4.0-5.20 10^6/uL Hemoglobin 12.1 L 12.2-16.2 g/dL Hematocrit 35.9 L 36.0-46.0 % Mean Corpuscular Volume 86.0 80.0-100.0 fL Mean Corpuscular Hemoglobin 28.9 28.0-32.0 pg Mean Corpuscular Hemoglobin Concent 33.6 32.0-36.0 g/dL Red Cell Distribution Width 13.8 11.8-14.3 % Platelet Count 297 140-450 10^3/uL Mean Platelet Volume 8.3 6.9-10.8 fL Neutrophils (%) (Auto) 54.1 37.0-80.0 % Lymphocytes (%) (Auto) 33.6 10.0-50.0 % Monocytes (%) (Auto) 8.0 0.0-12.0 % Eosinophils (%) (Auto) 3.7 0.0-7.0 % Basophils (%) (Auto) 0.6 0.0-2.0 % Neutrophils # (Auto) 2.8 1.6-8.6 10 ^3/uL Lymphocytes # (Auto) 1.8 0.4-5.4 10 ^3/uL Monocytes # (Auto) 0.4 0-1.3 10 ^3/uL Eosinophils # (Auto) 0.2 0-0.8 10 ^3/uL Basophils # (Auto) 0 0-0.2 10 ^3/uL Nucleated Red Blood Cells 0.0 % Sodium Level 141 136-145 mmol/L Potassium Level 3.3 L 3.5-5.1 mmol/L Chloride Level 103 98-107 mmol/L Carbon Dioxide Level 27 20-31 mmol/L Anion Gap 11 5-15 Blood Urea Nitrogen 10 9-23 mg/dL Creatinine 0.69 0.550-1.02 mg/dL Glomerular Filtration Rate Calc 117 >90 mL/min BUN/Creatinine Ratio 14.5 10.0-20.0 Serum Glucose 99 74-106 mg/dL Calcium Level 10.7 H 8.7-10.4 mg/dL Time of 1ST Reevaluation: 16:39 Reevaluation 1ST: Unchanged Time of 2ND Reevaluation: 16:59 Reevaluation 2ND: Improved Patient Education/Counseling: Diagnosis, Treatment, Prognosis, Need For Follow Up Family Education/Counseling: No Family Present Comments pt had swallowed krishan=lood from epistaxis. she was told that the swallowed blood would make her nauseous, which she is experiencing now. she has not vomited. her h/h ar normal. her K is mildly low, but otherwise, chem is wnl. she is stable for discharge. i will prescribe reglan to promote gi motility to expel the ingested blood and to provide relief from nausea Departure 1 Departure Time of Disposition: 17:00 Impression: Primary Impression: Nausea Disposition: 01 HOME / SELF CARE / HOMELESS Condition: Good e-Prescriptions Metoclopramide Hcl (Reglan) 5 Mg Tab 5 MG PO Q8HP PRN for 2 Days, #6 TAB Prov: TEQUILA BACA MD 03/25/25 Discharged With: Self Critical Care Note Critical Care Time?: No Stability Stability form required: No Heart Score Heart Score: Heart Score Response (Comments) Value History N/A 0 EKG N/A 0 Age N/A 0 Risk Factors N/A 0 Troponin N/A 0 Total 0 I personally scribed for TEQUILA [facility]ACA MD ([email or web address] on 03/25/25 at 16:13. Electronically submitted by Monica Black ([email or web address]). I personally scribed for TEQUILA BACA MD ([email or web address]) on 03/25/25 at 16:18. Electronically submitted by Monica Black ([email or web address]). TEQUILA BACA MD Mar 25, 2025 16:13
[2025-03-25] MEDS: ONDANSETRON ODT 4 MG TAB PO ONE (16:15)
[2025-03-25 16:39] LABS: Basophils # (auto) 0 10 ^3/uL (0-0.2); Basophils % (auto) 0.6 % (0.0-2.0); Eosinophils # (auto) 0.2 10 ^3/uL (0-0.8); Eosinophils % (auto) 3.7 % (0.0-7.0); Hematocrit 35.9 % (36.0-46.0); Hemoglobin 12.1 g/dL (12.2-16.2); Lymphocytes # (auto) 1.8 10 ^3/uL (0.4-5.4); Lymphocytes % (auto) 33.6 % (10.0-50.0); Mean Corpuscular Hemoglobin 28.9 pg (28.0-32.0); Mean Corpuscular Hgb Conc. 33.6 g/dL (32.0-36.0); Monocytes # (auto) 0.4 10 ^3/uL (0-1.3); Neutrophils # (auto) 2.8 10 ^3/uL (1.6-8.6); Neutrophils % (auto) 54.1 % (37.0-80.0); Platelet Count (auto) 297 10^3/uL (140-450); Red Blood Cells 4.18 10^6/uL (4.0-5.20); Red Cell Distribution Width 13.8 % (11.8-14.3); White Blood Cell 5.2 10^3/uL (4.4-10.8)
[2025-03-25 16:50] LABS: Chloride 103 mmol/L (98-107); Sodium 141 mmol/L (136-145)
[2025-03-25 16:51] LABS: Anion Gap 11 (5-15); Carbon Dioxide 27 mmol/L (20-31)
[2025-03-25 16:53] LABS: Calcium 10.7 mg/dL (8.7-10.4); Potassium 3.3 mmol/L (3.5-5.1)
[2025-03-25 16:56] LABS: BUN/Creatinine Ratio 14.5 (10.0-20.0); Blood Urea Nitrogen 10 mg/dL (9-23); Glucose 99 mg/dL (74-106)
[2025-03-25] MEDS ORDERED: METO5TAB67 PO (17:03)
[2025-03-25] MEDS: POTASSIUM CHL 20 Meq TABLET PO ONE (17:19)
[2025-03-25 17:21] VITALS: BP 124/91; PULSE 76; RESP 18; O2SAT 98
== END 2025-03-25 17:24 | disposition home or self-care (01) ==
LOC: ER 16:00
DX: R11.0 Nausea (principal); R10.84 Generalized abdominal pain; Z79.899 Other long term (current) drug therapy
CPT/HCPCS: 36415; 80048; 81025; 85025; 99283; Q0162

== ENCOUNTER 2025-04-03 06:06 | Emergency (ER) | payer MEDICAID ==
[~2025-04-03] VITALS: Ht 167.6 cm; Wt 61.6 kg
[~2025-04-03 06:06] MED LIST changes: +METO5TAB67 PO; -MUPI2OIN2 NAS
--- NOTE | 2025-04-03 06:34 | ED.PDOC ---
History of Present Illness HPI Comments 35 y/o F, presents to the ED for CC of ingestion. Patient states, she recently had nasal surgery and had a large scab in the back of her throat as a result. Patient endorses, as of this morning (04/03/25) she believes the scab to have become dislodged, causing her to swallow it and become stuck in her throat. Patient relays, feeling as if something is stuck in her throat with a scratchy sensation. Patient comments, on eating and drinking normally with only mild discomfort to her throat. Patient denies chest pain, shortness of breath, or difficulty breathing. No other symptoms or modifying factors present at this time. Chief Complaint: Ingestion Time Seen by MD: 06:35 Primary Care Provider: Dr. Marquez Reviewed Notes: Nurses Notes, Medications, Allergies Allergies: Coded Allergies: NO KNOWN ALLERGIES (Unverified , 03/01/25) Home Meds Active Scripts Metoclopramide Hcl (Reglan) 5 Mg Tab, 5 MG PO Q8HP PRN for 2 Days, #6 TAB Prov:TEQUILA BACA MD 03/25/25 Dicyclomine Hcl (BENTYL CAPSULE) 10 Mg Cp, 1 CAP PO Q6HPRN, #15 CAP 0 Refills Prov:SHONDA WILSON PAC 03/18/25 Ondansetron Odt 4MG Tab (ZOFRAN PO) 4 Mg Tb, 4 MG PO Q6HP PRN, #15 TAB ODT TAB-DISSOLVE IN MOUTH, THEN SWALLOW Prov:SHONDA WILSON PAC 03/18/25 Discontinued Scripts Mupirocin (Pseudomonas Fluores (Mupirocin) 2 % Oin, 1 APPLIC JESE BID for 7 Days, #15 GRAMS Half fingebreabth (0.5 CM) into left nare twice daily x 7 days Prov:CON EASTON [facility] 03/24/25 Information Source: Patient Mode of Arrival: Ambulatory Severity: Moderate Timing: Days Duration: Since onset Prehospital treatment: None Past Medical History PAST MEDICAL HISTORY: Denies Surgical History: Denies all surgeries 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 Family History Family History: Reviewed,noncontributory to illness Social History Smoker: Non-Smoker Alcohol: Denies ETOH Use Drugs: Denies Drug Use Lives In: Home Constitutional: denies: chills, diaphoresis, fatigue, fever, malaise, sweats, weakness, others EENTM: reports: throat pain; denies: blurred vision, double vision, ear bleeding, ear discharge, ear drainage, ear pain, ear ringing, eye pain, eye redness, hearing loss, mouth pain, mouth swelling, nasal discharge, nose bleeding, nose congestion, nose pain, photophobia, tearing, throat swelling, voice changes, others Respiratory: denies: cough, hemoptysis, orthopnea, SOB at rest, shortness of breath, SOB with excertion, stridor, wheezing, others Cardiovascular: denies: chest pain, dizzy spells, diaphoresis, Dyspnea on exertion, edema, irregular heart beat, left arm pain, lightheadedness, palpitations, PND, syncope, others Gastrointestinal: denies: abdomen distended, abdominal pain, blood streaked bowels, constipated, diarrhea, dysphagia, difficulty swallowing, hematemesis, melena, nausea, poor appetite, poor fluid intake, rectal bleeding, rectal pain, vomiting, others Genitourinary: denies: abnormal vagina bleeding, burning, dyspareunia, dysuria, flank pain, frequency, hematuria, incontinence, pain, , vagina discharge, urgency, others Neurological: denies: dizziness, fainting, headache, left sided numbness, left sided weakness, numbness, paresthesia, pre-existing deficit, right sided numbness, right sided weakness, seizure, speech problems, tingling, tremors, weakness, others Musculoskeletal: denies: back pain, gout, joint pain, joint swelling, muscle pain, muscle stiffness, neck pain, others Integumetry: denies: bruises, change in color, change in hair/nails, dryness, laceration, lesions, lumps, rash, wounds, others Allergic/Immunocompromised: denies: Difficulty Healing, Frequent Infections, Hives, Itching, others Hematologic/Lymphatic: denies: anemia, blood clots, easy bleeding, easy bruising, swollen glands, others Endocrine: denies: excessive hunger, excessive sweating, excessive thirst, excessive urination, flushing, intolerance to cold, intolerance to heat, unexplained weight gain, unexplained weight loss, others Psychiatric: denies: anxiety, bipolar disorder, depression, hopeless, panic disorder, schizophrenia, sleepless, suicidal, others All Other Systems: Reviewed and Negative Physical Exam General Appearance: Moderate Distress HEENT: Normal ENT Inspection, Pharynx Normal, TMs Normal Neck: Full Range of Motion, Non-Tender, Normal, Normal Inspection Respiratory: Chest Non-Tender, Lungs Clear, No Accessory Muscle Use, No Respiratory Distress, Normal Breath Sounds Cardiovascular: No Edema, No JVD, No Murmur, No Gallop, Normal Peripheral Pulses, Regular Rate/Rhythm Breast Exam: Deferred Gastrointestinal: No Organomegaly, Non Tender, No Pulsatile Mass, Normal Bowel Sounds, Soft Genitalia: Deferred Pelvic: Deferred Rectal: Deferred Extremities: No calf tenderness, Normal capillary refill, Normal inspection, Normal range of motion, Non-tender, No pedal edema Musculoskeletal : Apperance: Normal Neurologic: Alert, clerical grader II-XII nml as Tested, No Motor Deficits, Normal Affect, Normal Mood, No Sensory Deficits Cerebellar Function: Normal Reflexes: Normal Skin: Dry, Normal Color, Warm Peripheral Pulses: 3+ Radial (R), 3+ Radial (L) Lymphatic: No Adenopathy Was a procedure done? Was a procedure done?: No Differential Dx Considerations may include: Anxiety Foreign body sensation X-Ray, Labs, Meds, VS Vital Signs Date Time Temp Pulse Resp B/P (MAP) Pulse Ox O2 Delivery O2 Flow Rate FiO2 04/03/25 06:27 97.5 90 20 125/69 (87) 100 97.5 [place] [address] Ph: [phone] DIAGNOSTIC IMAGING Diagnostic Imaging Report : [id number] Signed PATIENT: DOUG PETTY JACCT: [id number] UNIT: [id number] : 1990 LOC: ER ROOM / BED: / AGE / SEX: 35 / F ADM STATUS: REG ER SERVICE 6 ORDERING PHYSICIAN: JUJU COLLAZO MD PROCEDURE(s): NECK - NECK FOR SOFT TISSUE REASON: foreignbody ORDER NUMBER(s): [id number], ACCESSION NUMBER(s): [id number] Procedure: XY NECK FOR SOFT TISSUE Exam Date: 04/03/2025 06:43 AM History: foreignbody Comparison Study: None Technique: Soft Tissue Neck: AP and lateral views. Findings/ impression: Hyperdense material is present in the region of the piriformis sinus possibly representing ingested material/ foreign body versus normal variant (thyroid cartilage). Clinical correlation ATED BY: HOANG HERNANDEZ MD DICTATED DATE/TIME: 04/03/25 075 SIGNED BY: HOANG HERNANDEZ MD SIGNED DATE/TIME: 04/03/25 075 CC: Patient alert. Complaining of foreign body sensation in back of the throat. On examination no sign of any distress no redness. Vitals stable. Answering questions. Able to swallow. No shortness a breath. No leg swelling. X-ray does not show any acute process. Explained to the patient. Was told to follow up with her primary care physician. Was told to come back if there is any problem. Time of 1ST Reevaluation: 07:05 Reevaluation 1ST: Improved Patient Education/Counseling: Diagnosis, Treatment Family Education/Counseling: No Family Present SEPSIS Sepsis Screen Date sepsis recognized/suspect: Apr 03, 2025 Time Sepsis recognized/suspect: 619 Recent Procedure: No On Antibiotic Therapy: No Respiratory Rate >20: No Heart Rate >90: No Temp<36 C (96.8 F) or >38.3 C: No SBP <90 or MAP <65 mmHG: No New Acute Mental Status Change: No Is the patient on CPAP, BIPAP,: No Physician Orders Neck For Soft Tissue (04/03/25 06:27) Glucagon Hydrochloride (Rdna) (Glucagen) (04/03/25 08:15) Vital Signs Date Time Temp Pulse Resp B/P (MAP) Pulse Ox O2 Delivery O2 Flow Rate FiO2 04/03/25 06:27 97.5 90 20 125/69 (87) 100 97.5 Departure 1 Departure Time of Disposition: 07:05 Impression: Primary Impression: Foreign body sensation in throat Disposition: 01 HOME / SELF CARE / HOMELESS Condition: Good Discharged With: Self Critical Care Note Critical Care Time?: No Stability Stability form required: No Heart Score Heart Score: Heart Score Response (Comments) Value History N/A 0 EKG N/A 0 Age N/A 0 Risk Factors N/A 0 Troponin N/A 0 Total 0 I personally scribed for JUJU COLLAZO MD ([email or web address]) on 6/24/25 at 06:34. Electronically submitted by Monica Black ([email or web address]). I personally scribed for JUJU COLLAZO MD ([email or web address]) on 04/03/25 at 06:42. Electronically submitted by Monica Black ([email or web address]). I personally scribed for JUJU COLLAZO MD ([email or web address]) on 04/03/25 at 08:08. Electronically submitted by Monica Black ([email or web address]). JUJU COLLAZO MD Apr 03, 2025 06:34
--- NOTE | 2025-04-03 07:52 | DVH ---
Procedure: XY NECK FOR SOFT TISSUE Exam Date: 04/03/2025 06:43 AM History: foreignbody Comparison Study: None Technique: Soft Tissue Neck: AP and lateral views. Findings/ impression: Hyperdense material is present in the region of the piriformis sinus possibly representing ingested m aterial/ foreign body versus normal variant (thyroid cartilage). Clinical correlation
[2025-04-03] MEDS: GLUCAGON EMERG KIT 1mg/1ml IM ONE (08:40)
[2025-04-03 08:47] VITALS: BP 136/76; PULSE 78; RESP 16; TEMP 97.6; O2SAT 96
== END 2025-04-03 08:48 | disposition home or self-care (01) ==
LOC: ER 06:06
DX: R09.A2 Foreign body sensation, throat (principal)
CPT/HCPCS: 70360; 96372; 99283; J1610

== ENCOUNTER 2025-04-29 18:48 | Emergency (ER) | payer MEDICAID ==
[~2025-04-29] VITALS: Ht 167.6 cm; Wt 60.5 kg
--- NOTE | 2025-04-29 19:34 | ED.PDOC ---
History of Present Illness HPI Comments 35 y/o F presents with c/c headache, with associated nausea. Patient endorses on 3x day history of symptoms following initial, unprovoked and gradual onset. Pain is localized to bilateral sides of her head. No relief with [id number] Tylenol and Motrin medication use. Medical history of GERD. No recent head injuries, sick contact, or pertinent history reported. Patient denies having any vision or speech changes, dizziness, lightheadedness, facial droop, fever, chills, abdominal pain, vomiting, or further associated symptoms. Chief Complaint: Headache Time Seen by MD: 19:10 Primary Care Provider: Dr. Marquez Reviewed Notes: Nurses Notes, Medications, Allergies Allergies: Coded Allergies: Nitrofurantoin (Verified Allergy, Severe, 04/29/25) Home Meds Active Scripts Metoclopramide Hcl (Reglan) 5 Mg Tab, 5 MG PO Q8HP PRN for 2 Days, #6 TAB Prov:TEQUILA BACA MD 03/25/25 Dicyclomine Hcl (BENTYL CAPSULE) 10 Mg Cp, 1 CAP PO Q6HPRN, #15 CAP 0 Refills Prov:SHONDA WILSON PAC 03/18/25 Ondansetron Odt 4MG Tab (ZOFRAN PO) 4 Mg Tb, 4 MG PO Q6HP PRN, #15 TAB ODT TAB-DISSOLVE IN MOUTH, THEN SWALLOW Prov:SHONDA WILSON [facility] 03/18/25 Information Source: Patient Mode of Arrival: Ambulatory Severity: Moderate Timing: Days Duration: Since onset Prehospital treatment: None Past Medical History PAST MEDICAL HISTORY: GERD Surgical History (Other): nasal surgery DATABASE ADMIN History: Denies all DATABASE ADMIN Hx Family History Family History: Reviewed,noncontributory to illness Social History Smoker: Non-Smoker Alcohol: Denies ETOH Use Drugs: Denies Drug Use Lives In: Home All Other Systems: Reviewed and Negative (Comprehensive systems review obtained and negative except for what is stated in the HPI.) Physical Exam General Appearance: No Apparent Distress, Normal HEENT: Normal ENT Inspection, Pharynx Normal, TMs Normal Neck: Full Range of Motion, Non-Tender, Normal, Normal Inspection Respiratory: Chest Non-Tender, Lungs Clear, No Accessory Muscle Use, No Respiratory Distress, Normal Breath Sounds Cardiovascular: No Edema, No JVD, No Murmur, No Gallop, Normal Peripheral P ulses, Regular Rate/Rhythm Breast Exam: Deferred Gastrointestinal: No Organomegaly, Non Tender, No Pulsatile Mass, Normal Bowel Sounds, Soft Genitalia: Deferred Pelvic: Deferred Rectal: Deferred Extremities: No calf tenderness, Normal capillary refill, Normal inspection, Normal range of motion, Non-tender, No pedal edema Musculoskeletal : Apperance: Normal Neurologic: Alert, 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 Was a procedure done?: No Differential Dx Considerations may include: migraines, tension headaches, dehydration, electrolyte imbalance, viral syndrome, among others X-Ray, Labs, Meds, VS Vital Signs Date Time Temp Pulse Resp B/P (MAP) Pulse Ox O2 Delivery O2 Flow Rate FiO2 04/29/25 19:13 90 04/29/25 18:58 99.1 9 14 131/85 (100) 100 99.1 Current Medications Medications (Trade) Dose Ordered Sig/[place] Route Start Time Stop Time Status Last Admin Sodium Chloride 1,000 ml @ 1,000 mls/hr Q1H ONCE IV 04/29/25 19:15 04/29/25 20:14 DC 04/29/25 22:43 Acetaminophen (Tylenol Tablet) 650 mg ONCE ONCE PO 04/29/25 19:15 04/29/25 19:17 DC 04/29/25 22:44 Ketorolac Tromethamine (Toradol Injection) 15 mg ONCE ONCE IV 04/29/25 19:15 04/29/25 19:17 DC 04/29/25 22:44 Metoclopramide HCl (Reglan Injection) 10 mg ONCE ONCE IV 04/29/25 19:15 04/29/25 19:17 DC 04/29/25 22:43 Dexamethasone Sodium Phosphate (Decadron Injection) 10 mg ONCE ONCE IV 04/29/25 19:15 04/29/25 19:17 DC 04/29/25 22:43 Time of 1ST Reevaluation: 19:40 Reevaluation 1ST: Unchanged Patient Education/Counseling: Diagnosis, Treatment, Need For Follow Up Family Education/Counseling: No Family Present Comments Previous visits reviewed: March 25, 2025 and April 03, 2025 encounters for nausea and foreign body sensation in throat. The following tests were ordered, and results were reviewed by me: N/A Additional Information was gathered from interviewing the following independent historians: N/A I reviewed and agreed with the following test results read by other providers: N/A I discussed treatment and results with medical personnel and: patient SEPSIS Sepsis Screen Date sepsis recognized/suspect: Apr 29, 2025 Time Sepsis recognized/suspect: 1847 Recent Procedure: No On Antibiotic Therapy: No Respiratory Rate >20: No Heart Rate >90: No Temp<36 C (96.8 F) or >38.3 C: No SBP <90 or MAP <65 mmHG: No New Acute Mental Status Change: No Is the patient on CPAP, BIPAP,: No Physician Orders Electrocardigram (04/29/25 19:43) Vital Signs Date Time Temp Pulse Resp B/P (MAP) Pulse Ox O2 Delivery O2 Flow Rate FiO2 04/29/25 19:13 90 04/29/25 18:58 99.1 9 14 131/85 (100) 100 99.1 Medications Medications Dose Ordered Sig/[place] Route Start Time Stop Time Status Last Admin Dose Admin Acetaminophen 650 mg ONCE ONCE PO 04/29/25 19:15 04/29/25 19:17 DC 04/29/25 22:44 Dexamethasone Sodium Phosphate 10 mg ONCE ONCE IV 04/29/25 19:15 04/29/25 19:17 DC 04/29/25 22:43 Ketorolac Tromethamine 15 mg ONCE ONCE IV 04/29/25 19:15 04/29/25 19:17 DC 04/29/25 22:44 Metoclopramide HCl 10 mg ONCE ONCE IV 04/29/25 19:15 04/29/25 19:17 DC 04/29/25 22:43 Sodium Chloride 1,000 ml @ 1,000 mls/hr Q1H ONCE IV 04/29/25 19:15 04/29/25 20:14 DC 04/29/25 22:43 Departure 1 Departure Time of Disposition: 23:32 (Patient likely with a migraine. Patient is feeling significantly better. We will discharge patient home with outpatient follow up) Impression: Primary Impression: Migraine Qualified Codes: G43.109 - Migraine with aura, not intractable, without status migrainosus Disposition: HOME / SELF CARE / HOMELESS Condition: Stable Additional Instructions: You likely had a migraine. You received medications in the ER. You can take tylenol and motrin as needed for pain. You should stay well rested and well hydrated. It is important to follow up with your regular doctor within one week. If your symptoms worsen or you have any other concerns then please return to the ER. Discharged With: Self Critical Care Note Critical Care Time?: No Stability Stability form required: No Heart Score Heart Score: Heart Score Response (Comments) Value History N/A 0 EKG N/A 0 Age N/A 0 Risk Factors N/A 0 Troponin N/A 0 Total 0 I personally scribed for BUZZ AMBROCIO MD ([email or web address]) on 04/29/25 at 19:33. Electronically submitted by Dominic Chapman ([email or web address]). I personally scribed for BUZZ AMBROCIO MD ([email or web address]) on 04/29/25 at 19:35. Electronically submitted by Dominic Chapman ([email or web address]). BUZZ AMBROCIO MD Apr 29, 2025 19:33
[2025-04-29] MEDS: SODIUM CHLORIDE 0.9% 1,000 ML IV ONE (22:43)
[2025-04-29] MEDS: METOCLOPRAMIDE HCL 5MG/ml INJ 2ml VIAL IV ONE (22:43)
[2025-04-29] MEDS: KETOROLAC TROMETH 30 MG/ML 1ML VIAL IV ONE (22:44)
[2025-04-29] MEDS: ACETAMINOPHEN 325 MG TAB PO ONE (22:44)
[2025-04-29 23:49] VITALS: BP 118/73; PULSE 78; RESP 17; TEMP 98.5; O2SAT 97
--- NOTE | 2025-05-01 08:41 | ECG ---
[facility] Test Date: 2025-04-29 Test Time: 19:13:46 Pat Name: DOUG PETTY Department: ER Room: Gender: F Perinatal Nurse: AROLDO : 1990 Requested By: EMERGENCY EMERGENCY Order Number: [id number] Reading MD: Measurements Intervals [place] Rate: 90 P: 68 CO: 127 QRS: 62 QRSD: 90 T: 11 QT: 371 QTc: 454 Interpretive Statements Sinus rhythm Please click the below link to view image of tracing.
== END 2025-04-29 23:52 | disposition home or self-care (01) ==
LOC: ER 18:48
DX: G43.909 Migraine, unspecified, not intractable, without status migrainosus (principal); K21.9 Gastro-esophageal reflux disease without esophagitis; Z88.1 Allergy status to other antibiotic agents; Z79.899 Other long term (current) drug therapy; Z98.890 Other specified postprocedural states
CPT/HCPCS: 93005; 96361; 96374; 96375; 99284; J1100; J1885; J2765; J7030

== ENCOUNTER 2025-05-06 10:13 | Emergency (ER) | payer MEDICAID ==
[~2025-05-06] VITALS: Ht 167.6 cm; Wt 61.0 kg
--- NOTE | 2025-05-06 10:57 | ED.PDOC ---
HPI (NEURO) HPI Comments 35y F who presents to the ED for chief complaint of headache. Pt states he came to [facility] 5 days prior for headache and states she was dx with migraine and given prescription of sumatriptan and discharged. Pt states she has continued to have headache despite taking her meds and came to the ED for evaluation.Pt in the ED, states her headache is throbbing in nature, located by the frontal and occipital lobe, with no associated exacerbating or relieving factors. Pt states she has noticed after taking her medications, she has felt like a heart episode and came to the ED. Pt in the ED, otherwise states she is having abdominal pain with associated dysuria. Pt states she also tested postive for COVID 5 on Wednesday, but states she did not see provider and has not taken any perscribed medications. Pt is alert and oriented x 4 and able to answer all questions. Chief Complaint: Flu like Comments pt also reports dysuria, no flank pain. no nausea or vomiting Time Seen by MD: 10:30 Primary Care Provider: Dr. 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 Family History Family History: Reviewed,noncontributory to illness Social History Smoker: Non-Smoker Alcohol: Denies ETOH Use Drugs: Denies Drug Use Lives In: Home Constitutional: denies: chills, diaphoresis, fatigue, fever, malaise, sweats, weakness, others EENTM: denies: blurred vision, double vision, ear bleeding, ear discharge, ear drainage, ear pain, ear ringing, eye pain, eye redness, hearing loss, mouth pain, mouth swelling, nasal discharge, nose bleeding, nose congestion, nose pain, photophobia, tearing, throat pain, throat swelling, voice changes, others Respiratory: denies: cough, hemoptysis, orthopnea, SOB at rest, shortness of breath, SOB with excertion, stridor, wheezing, others Cardiovascular: denies: chest pain, dizzy spells, diaphoresis, Dyspnea on exertion, edema, irregular heart beat, left arm pain, lightheadedness, palpitations, PND, syncope, others Gastrointestinal: denies: abdomen distended, abdominal pain, blood streaked bowels, constipated, diarrhea, dysphagia, difficulty swallowing, hematemesis, melena, nausea, poor appetite, poor fluid intake, rectal bleeding, rectal pain, vomiting, others Genitourinary: reports: dysuria; denies: abnormal vagina bleeding, burning, dyspareunia, flank pain, frequency, hematuria, incontinence, pain, , vagina discharge, urgency, others Neurological: reports: headache; denies: dizziness, fainting, left sided numbness, left sided weakness, numbness, paresthesia, pre-existing deficit, right sided numbness, right sided weakness, seizure, speech problems, tingling, tremors, weakness, others Musculoskeletal: denies: back pain, gout, joint pain, joint swelling, muscle pain, muscle stiffness, neck pain, others Integumetry: denies: bruises, change in color, change in hair/nails, dryness, laceration, lesions, lumps, rash, wounds, others Allergic/Immunocompromised: denies: Difficulty Healing, Frequent Infections, Hives, Itching, others Hematologic/Lymphatic: denies: anemia, blood clots, easy bleeding, easy bruising, swollen glands, others Endocrine: denies: excessive hunger, excessive sweating, excessive thirst, excessive urination, flushing, intolerance to cold, intolerance to heat, unexp lained weight gain, unexplained weight loss, others Psychiatric: denies: anxiety, bipolar disorder, depression, hopeless, panic disorder, schizophrenia, sleepless, suicidal, others All Other Systems: Reviewed and Negative (see HPI) Physical Exam General Appearance: No Apparent Distress, Normal HEENT: Normal ENT Inspection, Pharynx Normal, TMs Normal Neck: Full Range of Motion, Non-Tender, Normal, Normal Inspection Respiratory: Chest Non-Tender, Lungs Clear, No Accessory Muscle Use, No Respir atory Distress, Normal Breath Sounds Cardiovascular: No Edema, No JVD, No Murmur, No Gallop, Normal Peripheral Pulses, Regular Rate/Rhythm Breast Exam: Deferred Gastrointestinal: No Organomegaly, Non Tender, No Pulsatile Mass, Normal Bowel Sounds, Soft Genitalia: Deferred Pelvic: Deferred Rectal: Deferred Extremities: No calf tenderness, Normal capillary refill, Normal inspection, Normal range of motion, Non-tender, No pedal edema Musculoskeletal : Apperance: Normal Neurologic: None, Other (no neurological deficits, craniocephalic reflexes intact) Cerebellar Function: Normal Reflexes: Normal Skin: Dry, Normal Color, Warm Lymphatic: No Adenopathy Was a procedure done? Was a procedure done?: No Differential Diagnosis (SZ) Headache: Migraine, Closed Head Injury, Sinusitis, Trigeminal Neuralgia, Other (uti) X-Ray, Labs, Meds, VS Vital Signs Date Time Temp Pulse Resp B/P (MAP) Pulse Ox O2 Delivery O2 Flow Rate FiO2 05/06/25 10:35 98.0 98 18 125/90 (102) 98 98.0 Lab Test 05/06/25 10:00 Range/Units Urine Color Light-yellow Yellow Urine Clarity Hazy H Clear Urine pH 5.5 5.0-9.0 Urine Specific [place] 1.024 1.001-1.035 Urine Protein Trace H Negative Urine Ketones Negative Negative Urine Blood Negative Negative /uL Urine Nitrite Negative Negative Urine Bilirubin Negative Negative Urine Urobilinogen Normal Negative mg/dL Urine Leukocyte Esterase 3+ Negative /uL Urine RBC 3 0 - 4 /hpf Urine Microscopic WBC 30 H 0-5 /HPF Urine Squamous Epithelial Cells Mod <5 /hpf Urine Bacteria Few H None Seen /hpf Urine Mucus Few None Seen Urine Glucose Normal Normal mg/dL Urine Test Negative Negative Time of 1ST Reevaluation: 11:40 Reevaluation 1ST: Unchanged Patient Education/Counseling: Diagnosis, Treatment, Prognosis, Need For Follow Up Family Education/Counseling: No Family Present Departure 1 Departure Time of Disposition: 11:40 Impression: Primary Impression: COVID Additional Impressions: UTI (urinary tract infection) Qualified Codes: N30.00 - Acute cystitis without hematuria Cephalgia Qualified Codes: R51.9 - Headache, unspecified Disposition: 01 HOME / SELF CARE / HOMELESS Condition: Good e-Prescriptions Cephalexin Monohydrate (Cephalexin) 500 Mg Tab 1 TAB PO QID for 7 Days, #28 TAB Prov: TEQUILA BACA MD 05/06/25 Ibuprofen Micronized (MOTRIN TABLET) 600 Mg Tb 600 MG PO TID PRN, #40 TAB *Black box warning-NSAIDS can increase risk of [place] & hypertension, GI irritation, ulceration, bleed, perferation. Do not use post cardiac surgery. Use short duration/lowest effective dose. Prov: TEQUILA BACA MD 05/06/25 Discharged With: Self Critical Care Note Critical Care Time?: No Stability Stability form required: No Heart Score Heart Score: Heart Score Response (Comments) Value History N/A 0 EKG N/A 0 Age N/A 0 Risk Factors N/A 0 Troponin N/A 0 Total 0 I personally scribed for TEQUILA BACA MD ([email or web address]) on 05/06/25 at 10:57. Electronically submitted by Ailin Fajardo ([email or web address]). TEQUILA BACA MD May 06, 2025 10:57
[2025-05-06 11:01] LABS: Urine Protein, UAD TRACE (Negative)
[2025-05-06 11:40] VITALS: BP 116/76; PULSE 98; RESP 16; TEMP 98.7; O2SAT 98
[2025-05-06] MEDS ORDERED: IBU600T PO (11:43)
[2025-05-06] MEDS ORDERED: CEPH500T PO (11:43)
== END 2025-05-06 11:51 | disposition home or self-care (01) ==
LOC: ER 10:13
DX: U07.1 COVID-19 (principal); N39.0 Urinary tract infection, site not specified; R51.9 Headache, unspecified; K21.9 Gastro-esophageal reflux disease without esophagitis
CPT/HCPCS: 81001; 81025

== ENCOUNTER 2025-05-07 12:13 | Emergency (ER) | payer MEDICAID ==
[~2025-05-07] VITALS: Ht 167.6 cm; Wt 62.3 kg
[~2025-05-07 12:13] MED LIST changes: +CEPH500T PO; +IBU600T PO
--- NOTE | 2025-05-07 12:46 | ED.PDOC ---
Eye-HPI HPI Comments 35 y.o female presents to the ED for a chief complaint of a headache associated with nasal discharge x 2 weeks. Patient reports headache is localized to bilateral temporal regions and radiates to the back with dark nasal mucous output. Patient had Turbinate reduction surgery done in February of 2025 and believes it may be related to her symptoms today. Patient was seen yesterday for same complaint, was given Ibuprofen but had no pain relief. Additionally, patient was diagnosed with a UTI and placed on antibiotics. No other symptoms or pain reported. Time Seen by MD: 12:37 Primary Care Provider: Dr. Marquez Reviewed Notes: Nurses Notes, Medications, Allergies Allergies: Coded Allergies: Nitrofurantoin (Verified Allergy, Severe, 04/29/25) Home Meds Active Scripts Cephalexin Monohydrate (Cephalexin) 500 Mg Tab, 1 TAB PO QID for 7 Days, #28 TAB Prov:TEQUILA BACA MD 05/06/25 Ibuprofen Micronized (MOTRIN TABLET) 600 Mg Tb, 600 MG PO TID PRN, #40 TAB *Black box warning-NSAIDS can increase risk of [place] & hypertension, GI irritation, ulceration, bleed, perferation. Do not use post cardiac surgery. Use short duration/lowest effective dose. 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 FINISHER Hx Family History Family History: Reviewed,noncontributory to illness Social History Smoker: Non-Smoker Alcohol: Denies ETOH Use Drugs: Denies Drug Use Lives In: Home Constitutional: denies: chills, diaphoresis, fatigue, fever, malaise, sweats, weakness, others EENTM: reports: nasal discharge; denies: blurred vision, double vision, ear bleeding, ear discharge, ear drainage, ear pain, ear ringing, eye pain, eye redness, hearing loss, mouth pain, mouth swelling, nose bleeding, nose congestion, nose pain, photophobia, tearing, throat pain, throat swelling, voice changes, others Respiratory: denies: cough, hemoptysis, orthopnea, SOB at rest, shortness of breath, SOB with excertion, stridor, wheezing, others Cardiovascular: denies: chest pain, dizzy spells, diaphoresis, Dyspnea on exertion, edema, irregular heart beat, left arm pain, lightheadedness, palpitations, PND, syncope, others Gastrointestinal: denies: abdomen distended, abdominal pain, blood streaked bowels, constipated, diarrhea, dysphagia, difficulty swallowing, hematemesis, melena, nausea, poor appetite, poor fluid intake, rectal bleeding, rectal pain, vomiting, others Genitourinary: denies: abnormal vagina bleeding, burning, dyspareunia, dysuria, flank pain, frequency, hematuria, incontinence, pain, , vagina discharge, urgency, others Neurological: reports: headache; denies: dizziness, fainting, left sided numbness, left sided weakness, numbness, paresthesia, pre-existing deficit, right sided numbness, right sided weakness, seizure, speech problems, tingling, tremors, weakness, others Musculoskeletal: denies: back pain, gout, joint pain, joint swelling, muscle pain, muscle stiffness, neck pain, others Integumetry: denies: bruises, change in color, change in hair/nails, dryness, laceration, lesions, lumps, rash, wounds, others Allergic/Immunocompromised: denies: Difficulty Healing, Frequent Infections, Hives, Itching, others Hematologic/Lymphatic: denies: anemia, blood clots, easy bleeding, easy br uising, swollen glands, others Endocrine: denies: excessive hunger, excessive sweating, excessive thirst, excessive urination, flushing, intolerance to cold, intolerance to heat, unexplained weight gain, unexplained weight loss, others Psychiatric: denies: anxiety, bipolar disorder, depression, hopeless, panic disorder, schizophrenia, sleepless, suicidal, others All Other Systems: Reviewed and Negative Physical Exam General Appearance: Mild Distress HEENT: Normal ENT Inspection, Pharynx Normal, TMs Normal, Other (Sinus pain) Neck: Full Range of Motion, Non-Tender, Normal, Normal Inspection Respiratory: Chest Non-Tender, Lungs Clear, No Accessory Muscle Use, No Respiratory Distress, Normal Breath Sounds Cardiovascular: No Edema, No JVD, No Murmur, No Gallop, Normal Peripheral Pulses, Regular Rate/Rhythm Breast Exam: Deferred Gastrointestinal: No Organomegaly, Non Tender, No Pulsatile Mass, Normal Bowel Sounds, Soft Genitalia: Deferred Pelvic: Deferred Rectal: Deferred Extremities: No calf tenderness, Normal capillary refill, Normal inspection, Normal range of motion, Non-tender, No pedal edema Musculoskeletal : Apperance: Normal Neurologic: Alert, computer systems software engineer II-XII nml as Tested, No Motor Deficits, Normal Affect, Normal Mood, No Sensory Deficits Cerebellar Function: Normal Reflexes: Normal Skin: Dry, Normal Color, Warm Lymphatic: No Adenopathy Was a procedure done? Was a procedure done?: No EENT DIFF Eye: N/A Nose: Coagulopathy, Other X-Ray, Labs, Meds, VS Vital Signs Date Time Temp Pulse Resp B/P (MAP) Pulse Ox O2 Delivery O2 Flow Rate FiO2 05/07/25 12:59 98.0 95 16 127/85 (99) 98 98.0 X-rays of the sinuses were done and shows no sign of any significant opacification We feel that there is some tenderness so the patient is being discharged with a diagnosis of some sinusitis and headache The patient will follow up with the primary care doctor Images Reviewed?: Images reviewed and evaluated by me Time of 1ST Reevaluation: 12:46 Reevaluation 1ST: Unchanged Patient Education/Counseling: Diagnosis, Treatment, Prognosis, Need For Follow Up Family Education/Counseling: No Family Present SEPSIS Sepsis Screen Physician Orders X Paranasal Sinuses 3+ View (05/07/25 12:42) Vital Signs Date Time Temp Pulse Resp B/P (MAP) Pulse Ox O2 Delivery O2 Flow Rate FiO2 05/07/25 12:59 98.0 95 16 127/85 (99) 98 98.0 Departure 1 Departure Time of Disposition: 14:02 Impression: Primary Impression: Sinus pain Disposition: 01 HOME / SELF CARE / HOMELESS Condition: Fair Discharged With: Self Critical Care Note Critical Care Time?: No Stability Stability form required: No I personally scribed for WILLIS KNOWLES MD ([email or web address]) on 05/07/25 at 12:46. Elec tronically submitted by Nuris Johnson ([facility]). WILLIS KNOWLES MD May 07, 2025 12:46
--- NOTE | 2025-05-07 13:33 | DVH ---
PARANASAL SINUSES: INDICATION: HARRIS TECHNIQUE: 4 views FINDINGS: The paranasal sinuses are well-aerated. No abnormal soft tissue densities or air-fluid levels are present. Osseous alignment is anatomic. No displaced fractures are demonstrated. IMPRESSION: Normal sinus series
[2025-05-07 14:41] VITALS: BP 133/97; PULSE 87; RESP 16; TEMP 98; O2SAT 97
== END 2025-05-07 14:47 | disposition home or self-care (01) ==
LOC: ER 12:13
DX: J34.89 Other specified disorders of nose and nasal sinuses (principal); R51.9 Headache, unspecified; K21.9 Gastro-esophageal reflux disease without esophagitis; Z79.899 Other long term (current) drug therapy; Z98.890 Other specified postprocedural states; Z88.1 Allergy status to other antibiotic agents
CPT/HCPCS: 70220

== ENCOUNTER 2025-05-10 15:38 | Emergency (ER) | payer MEDICAID ==
[~2025-05-10] VITALS: Ht 167.6 cm; Wt 61.5 kg
--- NOTE | 2025-05-10 16:22 | ED.PDOC ---
GI ASSESSMENT HPI Comments A 35-YEAR-OLD FEMALE PRESENTS WITH A CHIEF COMPLAINT OF CONSTIPATION AND ABDOMINAL DISCOMFORT. PATIENT MENTIONS THAT FOR THE PAST 4 DAYS SHE HAS BEEN UNABLE TO DEFECATE. PATIENT REPORTS THAT SHE HAS BEEN TAKING OTC FIBER SUPPLEMENTS, BUT HAS NOT HAD ANY RELIEF. PATIENT DENIES ACTIVE PAIN, BUT DESCRIBES HAVING A GENERAL DISCOMFORT. PATIENT ALSO REPORTS THAT SHE HAS BEEN STRAINING AND HAS BEEN HAVING MILD BLOOD COMING FROM HER RECTUM FROM STRAINING. PATIENT DENIES ANY CHEST PAIN, NAUSEA, VOMITING, DIARRHEA, CHEST PAIN, HEADACHE, SOB, OR FATIGUE. NO OTHER SYMPTOMS OR MODIFYING FACTORS PRESENT AT THIS TIME. Chief Complaint: Constipation Time Seen by MD: 16:13 Primary Care Provider: Dr. Marquez Reviewed Notes: Nurses Notes, Medications, Allergies Allergies: Coded Allergies: Nitrofurantoin (Verified Allergy, Severe, 04/29/25) Home Meds Active Scripts Cephalexin Monohydrate (Cephalexin) 500 Mg Tab, 1 TAB PO QID for 7 Days, #28 TAB Prov:TEQUILA BACA MD 05/06/25 Ibuprofen Micronized (MOTRIN TABLET) 600 Mg Tb, 600 MG PO TID PRN, #40 TAB *Black box warning-NSAIDS can increase risk of [place] & hypertension, GI irritation, ulceration, bleed, perferation. Do not use post cardiac surgery. Use short duration/lowest effective dose. Prov:TEQUILA BACA MD 05/06/25 Metoclopramide Hcl (Reglan) 5 Mg Tab, 5 MG PO Q8HP PRN for 2 Days, #6 TAB Prov:TEQUILA BACA MD 03/25/25 Dicyclomine Hcl (BENTYL CAPSULE) 10 Mg Cp, 1 CAP PO Q6HPRN, #15 CAP 0 Refills Prov:SHONDA WILSON PAC 03/18/25 Ondansetron Odt 4MG Tab (ZOFRAN PO) 4 Mg Tb, 4 MG PO Q6HP PRN, #15 TAB ODT TAB-DISSOLVE IN MOUTH, THEN SWALLOW Prov:SHONDA WILSON PAC 03/18/25 Information Source: Patient Mode of Arrival: Ambulatory Timing: Days Duration: Since onset Prehospital treatment: None Quality: None Vomitus: None Stool: Impaction Severity: Moderate Recent: None Recent Hx of: None Pain Location: Suprapubic Associated sign and symptoms: Constipation Past Medical History PAST MEDICAL HISTORY: GERD Surgical History: Denies all surgeries 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 Hx Family History Family History: Reviewed,noncontributory to illness Social History Smoker: Non-Smoker Alcohol: Denies ETOH Use Drugs: Denies Drug Use Lives In: Home Constitutional: denies: chills, diaphoresis, fatigue, fever, malaise, sweats, weakness, others EENTM: denies: blurred vision, double vision, ear bleeding, ear discharge, ear drainage, ear pain, ear ringing, eye pain, eye redness, hearing loss, mouth pain, mouth swelling, nasal discharge, nose bleeding, nose congestion, nose pain, photophobia, tearing, throat pain, throat swelling, voice changes, others Respiratory: denies: cough, hemoptysis, orthopnea, SOB at rest, shortness of breath, SOB with excertion, stridor, wheezing, others Cardiovascular: denies: chest pain, dizzy spells, diaphoresis, Dyspnea on exertion, edema, irregular heart beat, left arm pain, lightheadedness, palpitations, PND, syncope, others Gastrointestinal: reports: constipated; denies: abdomen distended, abdominal pain, blood streaked bowels, diarrhea, dysphagia, difficulty swallowing, hematemesis, melena, nausea, poor appetite, poor fluid intake, rectal bleeding, rectal pain, vomiting, others Genitourinary: denies: abnormal vagina bleeding, burning, dyspareunia, dysuria, flank pain, frequency, hematuria, incontinence, pain, , vagina discharge, urgency, others Neurological: denies: dizziness, fainting, headache, left sided numbness, left sided weakness, numbness, paresthesia, pre-existing deficit, right sided numbness, right sided weakness, seizure, speech problems, tingling, tremors, weakness, others Musculoskeletal: denies: back pain, gout, joint pain, joint swelling, muscle pain, muscle stiffness, neck pain, others Integumetry: denies: bruises, change in color, change in hair/nails, dryness, laceration, lesions, lumps, rash, wounds, others Allergic/Immunocompromised: denies: Difficulty Healing, Frequent Infections, Hives, Itching, others Hematologic/Lymphatic: denies: anemia, blood clots, easy bleeding, easy bruising, swollen glands, others Endocrine: denies: excessive hunger, excessive sweating, excessive thirst, excessive urination, flushing, intolerance to cold, intolerance to heat, unexplained weight gain, unexplained weight loss, others Psychiatric: denies: anxiety, bipolar disorder, depression, hopeless, panic disorder, schizophrenia, sleepless, suicidal, others All Other Systems: Reviewed and Negative Physical Exam General Appearance: No Apparent Distress, Normal HEENT: Normal ENT Inspection, PERRL/EOMI, Pharynx Normal, TMs Normal Neck: Full Range of Motion, Non-Tender, Normal, Normal Inspection Respiratory: Chest Non-Tender, Lungs Clear, No Accessory Muscle Use, No Respiratory Distress, Normal Breath Sounds Cardiovascular: No Edema, No JVD, No Murmur, No Gallop, Normal Peripheral Pulses, Regular Rate/Rhythm Breast Exam: Deferred Gastrointestinal: No Organomegaly, Non Tender, No Pulsatile Mass, Normal Bowel Sounds, Soft Genitalia: Deferred Pelvic: Deferred Rectal: Heme negative stool, Normal rectal tone (REDNESS AROUND RECTAL REGION, +ANAL FISSURE, NO RECTAL BLEEDING AND BLOOD CLOTS. ) Extremities: No calf tenderness, Normal capillary refill, Normal inspection, Normal range of motion, Non-tender, No pedal edema Musculoskeletal : Apperance: Normal Neurologic: Alert, boiling house oiler II-XII nml as Tested, No Motor Deficits, Normal Affect, Normal Mood, No Sensory Deficits Cerebellar Function: Normal Reflexes: Normal Skin: Dry, Normal Color, Warm Peripheral Pulses: 2+ carotid (R), 2+ carotid (L) Lymphatic: No Adenopathy Was a procedure done? Was a procedure done?: No GI differential Dx Differential Diagnosis: Constipation, Other (ANAL FISSURE ) X-Ray, Labs, Meds, VS Vital Signs Date Time Temp Pulse Resp B/P (MAP) Pulse Ox O2 Delivery O2 Flow Rate FiO2 05/10/25 15:39 97.7 84 18 140/90 98 97.7 Current Medications Medications (Trade) Dose Ordered Sig/[place] Route Start Time Stop Time Status Last Admin Lactulose 60 ml ONCE ONCE PO 05/10/25 16:15 05/10/25 16:16 DC 05/10/25 16:36 PATIENT: DOUG PETTYDYANAT: [id number]: [id number] : 1990 LOC: ER ROOM / BED: / AGE / SEX: 35 / F ADM STATUS: REG ER SERVICE 13 ORDERING PHYSICIAN: STEPHANIE QUINONES PROCEDURE(s): KUB - KUB ABDOMEN SINGLE VIEW REASON: CONSTIPATION ORDER NUMBER(s): [id number], ACCESSION NUMBER(s): [id number] ABDOMEN, (KUB) ONE VIEW REASON FOR EXAM: CONSTIPATION COMPARISON: None TECHNIQUE: A single view of the abdomen is obtained. FINDINGS: The bowel gas pattern is nonobstructive. There is no supine evidence of pneumoperitoneum. The colonic stool burden is moderate. No acute osseous abnormality is identified. No abnormal calcification is identified. IMPRESSION: Moderate colonic stool burden consistent with the history of constipation. ATED BY: STANFORD BAKER MD DICTATED DATE/TIME: 05/10/251641 SIGNED BY: STANFORD BAKER MD SIGNED DATE/TIME: 05/10/251641 CC: X-Ray, Labs, Meds, VS Comment EXTERNAL MEDICAL RECORDS REVIEWED: [NONE] INDEPENDENT HISTORIANS: [NONE] SOCIAL DETERMINANTS OF HEALTH: [NONE] LABS ORDERED: NONE REVIEWED AND INTERPRETED RESULTS: NONE IMAGING ORDERED: NONE TREATMENTS ORDERED: LACTULOSE 60ML PO PROCEDURES PERFORMED: NONE CRITICAL CARE TIME: NONE I HAVE DISCUSSED THE PATIENT WITH THE ATTENDING PHYSICIAN DR. KNOWLES AND HE AGREES WITH THE PATIENT'S PLAN OF CARE AND DISPOSITION. BASED ON HISTORY OF PRESENT ILLNESS, AND PHYSICAL EXAM, PATIENT WILL BE DISCHARGED HOME. DISCUSSED PLAN FOR DISCHARGE HOME WITH RX [LACTULOSE]. ME DICATION WARNINGS GIVEN. SHARED DECISION MAKING: DISCUSSED WITH PATIENT THAT THEIR WORKUP WAS NORMAL. PATIENT INSTRUCTED TO FOLLOW UP WITH PRIMARY CARE PROVIDER IN 1-2 DAYS FOR RE- EVALUATION OF SYMPTOMS. PATIENT VERBALIZES UNDERSTANDING TO RETURN TO ED FOR NEW OR WORSENING SYMPTOMS OR IF FOLLOW UP WITH PCP CANNOT BE OBTAINED. PATIENT FEELS COMFORTABLE GOING HOME AT THIS TIME. ALL QUESTIONS ADDRESSED AT TIME OF DISCHARGE. Time of 1ST Reevaluation: 17:00 Reevaluation 1ST: Improved Patient Education/Counseling: Diagnosis, Treatment, Need For Follow Up Family Education/Counseling: Diagnosis, Treatment, No Family Present Medical Screening: No EMC Exist At This Time SEPSIS Sepsis Screen Date sepsis recognized/suspect: May 10, 2025 Time Sepsis recognized/suspect: 1541 Recent Procedure: No On Antibiotic Therapy: No Respiratory Rate >20: No Heart Rate >90: No Temp<36 C (96.8 F) or >38.3 C: No SBP <90 or MAP <65 mmHG: No New Acute Mental Status Change: No Is the patient on CPAP, BIPAP,: No Physician Orders Kub Abdomen Single View (05/10/25 16:14) Vital Signs Date Time Temp Pulse Resp B/P (MAP) Pulse Ox O2 Delivery O2 Flow Rate FiO2 05/10/25 15:39 97.7 84 18 140/90 98 97.7 Medications Medications Dose Ordered Sig/[place] Route Start Time Stop Time Status Last Admin Dose Admin Lactulose 60 ml ONCE ONCE PO 05/10/25 16:15 05/10/25 16:16 DC 05/10/25 16:36 Departure 1 Departure Time of Disposition: 17:00 Impression: Primary Impression: Acute constipation Additional Impression: Anal fissure Disposition: HOME / SELF CARE / HOMELESS Condition: Fair Additional Instructions: FOLLOW-UP WITH YOUR PCP IN 1-2 DAYS. RETURN TO THE ER IF YOUR SYMPTOMS WORSEN. e-Prescriptions Lactulose (Lactulose) 10 Gm/15 Ml Elizabeth 30 ML PO BID, #300 ML Prov: STEPHANIE QUINONES 05/10/25 Discharged With: Self Critical Care Note Critical Care Time?: No Stability Stability form required: No Heart Score Heart Score: Heart Score Response (Comments) Value History N/A 0 EKG N/A 0 Age N/A 0 Risk Factors N/A 0 Troponin N/A 0 Total 0 I personally scribed for STEPHANIE QUINONES ([email or web address]) on 05/10/25 at 16:22. Electronically submitted by Andrea Gooden ([email or web address]). STEPHANIE QUINONES May 10, 2025 16:22
[2025-05-10] MEDS: LACTULOSE 20Gm/30ML SOLN PO ONE (16:36)
--- NOTE | 2025-05-10 16:45 | DVH ---
ABDOMEN, (KUB) ONE VIEW REASON FOR EXAM: CONSTIPATION COMPARISON: None TECHNIQUE: A single view of the abdomen is obtained. FINDINGS: The bowel gas pattern is nonobstructive. There is no supine evidence of pneumoperitoneum. The colonic stool burden is moderate. No acute osseous abnormality is identified. No abnormal calcifi cation is identified. IMPRESSION: Moderate colonic stool burden consistent with the history of constipation.
[2025-05-10] MEDS ORDERED: LACT10SO3 PO (16:56)
[2025-05-10 16:57] VITALS: BP 125/86; PULSE 88; RESP 18; TEMP 98; O2SAT 96
[2025-05-11] MEDS ORDERED: OMEP-434 PO (09:18)
== END 2025-05-10 17:01 | disposition home or self-care (01) ==
LOC: ER 15:38
DX: K59.09 Other constipation (principal); K60.2 Anal fissure, unspecified; K21.9 Gastro-esophageal reflux disease without esophagitis; Z88.1 Allergy status to other antibiotic agents; Z79.899 Other long term (current) drug therapy
CPT/HCPCS: 74018

== ENCOUNTER 2025-05-10 21:44 | Inpatient (IN) | payer MEDICAID ==
[~2025-05-10] VITALS: Ht 167.6 cm; Wt 61.5 kg
[~2025-05-10 21:44] MED LIST changes: +LACT10SO3 PO
--- NOTE | 2025-05-10 22:00 | ED.PDOC ---
History of Present Illness HPI Comments 35-year-old female who presents to the emergency department with 1 hour of lower/suprapubic abdominal pain. No known trigger. Patient has not had a bowel movement in 4 days. Patient was prescribed lactulose today for constipation however she has not taken it yet. She states she had a small bowel movement t alix. Denies nausea or vomiting. No black or bloody stools. She denies any history of abdominal surgery. REVIEW OF SYSTEMS: General: No fever, no chills, or fatigue HEENT: No sore throat, no earache, no congestion, no neck pain. Cardiac: No chest pain. No palpitations. Lungs: No shortness of breath, no cough. GI: No nausea, no vomiting, no diarrhea, positive constipation, positive abdominal pain : Positive UTI Musculoskeletal: No joint pain , no joint swelling, no extremity edema. Skin: No rash, no itching. Neuro: No headache, no dizziness, no weakness PHYSICAL EXAM: General: Awake, alert and oriented. No acute distress. Skin: Skin in warm, dry and intact. Appropriate color for ethnicity. HEENT: The head is normocephalic and atraumatic. Conjunctivae are clear without exudates or hemorrhage. Sclera is non-icteric. EOM are intact. No signs of nystagmus. Eyelids are normal in appearance without swelling or lesions. Oral mu cosa is pink and moist Neck: The neck is supple with normal range of motion. No JVD. Cardiac: Heart rate and rhythm are normal. No murmurs, gallops, or rubs are auscultated. Respiratory: No signs of respiratory distress. Lung sounds are clear in all lobe s bilaterally without rales, rhonchi, or wheezes. Abdominal: Abdomen is soft, mildly distended, no guarding or rigidity. Bowel s ounds are present in all 4 quadrants. Positive suprapubic tenderness Extremities: Upper and lower extremities are atraumatic in appearance without deformity or edema. Neurological: The patient is awake, alert and oriented to person, place, and time with normal speech. Speech is clear. There is no facial asymmetry. Psychiatric: Appropriate mood and affect. Good judgement and insight. Chief Complaint: Abdominal Pain Time Seen by MD: 21:46 Primary Care Provider: Dr. Marquez Allergies: Coded Allergies: Nitrofurantoin (Verified Allergy, Severe, 04/29/25) Home Meds Active Scripts Loratadine (Claritin) 10 Mg Tab, 1 TAB PO DAILY for 10 Days, #10 TAB 5 Refills Prov:DOROTHY LU RESIDENT 05/13/25 Amoxicillin & Pot Clavulanate (AUGMENTIN TABLET) 875 Mg Tb, 875 MG PO BID for 5 Days, #10 TAB Prov:HOLLY LUEN RESIDENT 05/13/25 Metoclopramide Hcl (Reglan) 5 Mg Tab, 5 MG PO Q8HP PRN for 2 Days, #6 TAB Prov:TEQUILA BACA MD 03/25/25 Ondansetron Odt 4MG Tab (ZOFRAN PO) 4 Mg Tb, 4 MG PO Q6HP PRN, #15 TAB ODT TAB-DISSOLVE IN MOUTH, THEN SWALLOW Prov:SHONDA WILSON PAC 03/18/25 Reported Medications Omeprazole Magnesium (Omeprazole) 20 Mg Tab, 20 MG PO, TAB 05/11/25 Discontinued Scripts Lactulose (Lactulose) 10 Gm/15 Ml Elizabeth, 30 ML PO BID, #300 ML Prov:STEPHANIE QUINONES 05/10/25 Cephalexin Monohydrate (Cephalexin) 500 Mg Tab, 1 TAB PO QID for 7 Days, #28 TAB Prov:TEQUILA BACA MD 05/06/25 Ibuprofen Micronized (MOTRIN TABLET) 600 Mg Tb, 600 MG PO TID PRN, #40 TAB *Black box warning-NSAIDS can increase risk of [place] & hypertension, GI irritation, ulceration, bleed, perferation. Do not use post cardiac surgery. Use short duration/lowest effective dose. 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 CLERICAL PROOFREADER Hx Family History Family History: Reviewed,noncontributory to illness Social History Smoker: Non-Smoker Alcohol: Denies ETOH Use Drugs: Denies Drug Use Lives In: Home Constitutional: reports: others EENTM: reports: others Respiratory: reports: others Cardiovascular: reports: others Gastrointestinal: reports: others Genitourinary: reports: others Neurological: reports: others Musculoskeletal: reports: others Integumetry: reports: others Allergic/Immunocompromised: reports: others Hematologic/Lymphatic: reports: others Endocrine: reports: others Psychiatric: reports: others Unable to Obtain due to: Other Physical Exam General Appearance: Other HEENT: Other Neck: Other Respiratory: Other Cardiovascular: Other Breast Exam: Other Gastrointestinal: Other Genitalia: Other Pelvic: Other Rectal: Other Extremities: Other Neurologic: Other Cerebellar Function: Other Reflexes: Other Skin: Other Lymphatic: Other Was a procedure done? Was a procedure done?: No Differential Dx Considerations may include: Differential diagnoses considered include: Abdominal aortic aneurysm, OR, esophageal rupture, intestinal obstruction, mesenteric ischemia, perforated viscus or solid organ rupture, CHF with hepatomegaly, pneumonia, abscess, appendicitis, biliary disease, diverticulitis, gastritis, gastroenteritis, hepatitis, hernia, inflammatory bowel disease, pancreatitis, peptic ulcer di sease, urinary tract infection, ureteral colic, constipation, GERD, irritable syndrome, abdominal wall pain, nonspecific abdominal pain, herpes zoster, nephrolithiasis. Also ruptured ectopic , ovarian torsion/cyst, tubo- ovarian abscess, PID, endometriosis, mittleschmerz. X-Ray, Labs, Meds, VS Vital Signs Date Time Temp Pulse Resp B/P (MAP) Pulse Ox O2 Delivery O2 Flow Rate FiO2 05/11/25 05:02 98.4 89 20 115/69 (84) 99 98.4 05/11/25 02:09 78 14 130/79 05/11/25 01:40 97.4 87 16 122/79 (93) 99 97.4 05/11/25 01:40 87 16 122/79 05/11/25 00:13 74 13 115/74 05/10/25 22:39 92 21 132/55 05/10/25 22:36 92 21 99 Room Air 05/10/25 22:36 98.4 92 21 132/55 (80) 99 98.4 05/10/25 21:47 97.4 89 18 135/81 100 97.4 Lab Test 05/10/25 22:08 05/10/25 21:50 Range/Units White Blood Count 7.4 4.4-10.8 10^3/uL Red Blood Count 4.35 4.0-5.20 10^6/uL Hemoglobin 12.1 L 12.2-16.2 g/dL Hematocrit 35.5 L 36.0-46.0 % Mean Corpuscular Volume 81.5 80.0-100.0 fL Mean Corpuscular Hemoglobin 27.8 L 28.0-32.0 pg Mean Corpuscular Hemoglobin Concent 34.1 32.0-36.0 g/dL Red Cell Distribution Width 14.0 11.8-14.3 % Platelet Count 325 140-450 10^3/uL Mean Platelet Volume 8.3 6.9-10.8 fL Neutrophils (%) (Auto) 45.2 37.0-80.0 % Lymphocytes (%) (Auto) 44.8 10.0-50.0 % Monocytes (%) (Auto) 7.1 0.0-12.0 % Eosinophils (%) (Auto) 2.5 0.0-7.0 % Basophils (%) (Auto) 0.4 0.0-2.0 % Neutrophils # (Auto) 3.4 1.6-8.6 10 ^3/uL Lymphocytes # (Auto) 3.3 0.4-5.4 10 ^3/uL Monocytes # (Auto) 0.5 0-1.3 10 ^3/uL Eosinophils # (Auto) 0.2 0-0.8 10 ^3/uL Basophils # (Auto) 0 0-0.2 10 ^3/uL Nucleated Red Blood Cells 0.1 % Sodium Level 136 136-145 mmol/L Potassium Level 3.4 L 3.5-5.1 mmol/L Chloride Level 102 98-107 mmol/L Carbon Dioxide Level 25 20-31 mmol/L Anion Gap 9 5-15 Blood Urea Nitrogen 10 9-23 mg/dL Creatinine 0.72 0.550-1.02 mg/dL Glomerular Filtration Rate Calc 113 >90 mL/min BUN/Creatinine Ratio 13.9 10.0-20.0 Serum Glucose 118 H 74-106 mg/dL Calcium Level 9.6 8.7-10.4 mg/dL Amylase Level 84 30-118 U/L Lipase 38 12-53 U/L Beta HCG, Quantitative 0.0 L 1.5-4.2 mIU/mL Urine Color Yellow Yellow Urine Clarity Clear Clear Urine pH 5.5 5.0-9.0 Urine Specific [place] > 1.035 H 1.001-1.035 Urine Protein Trace H Negative Urine Ketones 2+ H Negative Urine Blood Negative Negative /uL Urine Nitrite Negative Negative Urine Bilirubin Negative Negative Urine Urobilinogen Normal Negative mg/dL Urine Leukocyte Esterase Negative Negative /uL Urine RBC 1 0 - 4 /hpf Urine Microscopic WBC 1 0-5 /HPF Urine Squamous Epithelial Cells Few <5 /hpf Urine Bacteria None seen None Seen /hpf Urine Mucus Few None Seen Urine Glucose Normal Normal mg/dL Time of 1ST Reevaluation: 21:54 Reevaluation 1ST: Unchanged Patient Education/Counseling: Other (Need for admission) Family Education/Counseling: Other SEPSIS Sepsis Screen Date sepsis recognized/suspect: May 10, 2025 Time Sepsis recognized/suspect: 2150 Recent Procedure: No On Antibiotic Therapy: No Respiratory Rate >20: No Heart Rate >90: No Temp<36 C (96.8 F) or >38.3 C: No SBP <90 or MAP <65 mmHG: No New Acute Mental Status Change: No Is the patient on CPAP, BIPAP,: No Physician Orders Ct Ab Pel With Iv Con Only (05/11/25 01:12) Vital Signs Date Time Temp Pulse Resp B/P (MAP) Pulse Ox O2 Delivery O2 Flow Rate FiO2 05/11/25 05:02 98.4 89 20 115/69 (84) 99 98.4 05/11/25 02:09 78 14 130/79 05/11/25 01:40 97.4 87 16 122/79 (93) 99 97.4 05/11/25 01:40 87 16 122/79 05/11/25 00:13 74 13 115/74 05/10/25 22:39 92 21 132/55 05/10/25 22:36 92 21 99 Room Air 05/10/25 22:36 98.4 92 21 132/55 (80) 99 98.4 05/10/25 21:47 97.4 89 18 135/81 100 97.4 Laboratory Tests Test 05/10/25 22:08 White Blood Count 7.4 10^3/uL (4.4-10.8) Departure 1 Departure Time of Disposition: 02:20 Impression: Primary Impression: Intractable abdominal pain Additional Impression: Constipation Disposition: ADMITTED INPATIENT Condition: Stable e-Prescriptions Loratadine (Claritin) 10 Mg Tab 1 TAB PO DAILY for 10 Days, #10 TAB 5 Refills Prov: DOROTHY LU RESIDENT 05/13/25 Amoxicillin & Pot Clavulanate (AUGMENTIN TABLET) 875 Mg Tb 875 MG PO BID for 5 Days, #10 TAB Prov: DOROTHY LU RESIDENT 05/13/25 Critical Care Note Critical Care Time?: No Stability Stability form required: PEARL Stephen MD May 10, 2025 22:00
[2025-05-10 22:30] LABS: Hematocrit 35.5 % (36.0-46.0); Hemoglobin 12.1 g/dL (12.2-16.2); Mean Corpuscular Hemoglobin 27.8 pg (28.0-32.0); Mean Corpuscular Volume 81.5 fL (80.0-100.0); Nucleated Red Blood Cells % 0.1 %
[2025-05-10 22:38] LABS: Chloride 102 mmol/L (98-107); Sodium 136 mmol/L (136-145)
[2025-05-10 22:39] LABS: Anion Gap 9 (5-15); Calcium 9.6 mg/dL (8.7-10.4); Carbon Dioxide 25 mmol/L (20-31)
[2025-05-10] MEDS: MORPHINE SULFATE INJ 2 MG/ml SYRG IV ONE (22:39)
[2025-05-10 22:44] LABS: BUN/Creatinine Ratio 13.9 (10.0-20.0); Blood Urea Nitrogen 10 mg/dL (9-23); Lipase 38 U/L (12-53)
[2025-05-10 22:45] LABS: Glucose 118 mg/dL (74-106); Potassium 3.4 mmol/L (3.5-5.1)
[2025-05-11] MEDS: SODIUM CHLORIDE 0.9% 1,000 ML IV ONE ×2 (00:14→05:49)
[2025-05-11] MEDS: ONDANSETRON HCL 4 MG/2 ML VIAL IV ONE (01:39)
[2025-05-11] MEDS: MORPHINE SULFATE INJ 2 MG/ml SYRG IV ONE ×2 (01:40→05:48)
--- NOTE | 2025-05-11 02:31 | DVH ---
Exam: CT CT AB PEL WITH IV CON ONLY History: lower abdominal pain, constipation COMPARISON: None Technique: Multidetector spiral CT of the abdomen and pelvis was performed from lung bases to pubic s ymphysis. Intravenous contrast was administered during this examination. Portal venous imaging was o btained. Axial, coronal and sagittal multiplanar reformats were performed by the technologist on a [employer] workstation. Radiation Dose : 1. Abdomen/Pelvis: CTDIvol 6.19 mGy, DLP 383.45 mGy*cm. CONTRAST: Type of contrast: Omnipaque 300 Contrast injected: 100 ml Findings: Lung Bases: No acute or significant lung base finding. Normal heart size. No pleural or pericardial effusion. Liver: The liver is normal in size. No focal lesions. Normal hepatic vascular enhancement. Gallbladder and Biliary Tree: Unremarkable Spleen: Unremarkable Pancreas: The pancreas is normal in appearance without focal lesions or abnormal enhancement. Adrenal Glands: Unremarkable Kidneys: No hydronephrosis. Bladder: Unremarkable Bowel: The stomach is grossly normal in appearance. Moderately dilated stool and gas-filled segments of large bowel extending to the rectum with a maximum rectal diameter of 8.4 cm. The appendix is norm al. Ascites: Absent Lymphadenopathy: No mesenteric, retroperitoneal or periportal lymphadenopathy. Abdominal Wall and Mesentery: Unremarkable. Vasculature: The visualized abdominal aorta is normal in size and caliber. Abdominal and pelvic vess els demonstrate normal enhancement. Pelvic Organs: Unremarkable. Likely physiologic endometrial fluid. Musculoskeletal: No aggressive focal bony lesions, acute fractures or dislocation. IMPRESSION: 1. Extensive retained colonic stool in a pattern of constipation with moderate rectal fecal impaction . Radiation optimization: All CT scans at this facility use at least one of these dose optimization leonarda hniques: automated exposure control mA and/or kV adjustment per patient size (includes targeted exam s where dose is matched to clinical indication) or iterative reconstruction.
[2025-05-11] MEDS: IOHEXOL 300 MG/ML 100ML BOTTLE IJ ONE (02:41)
--- NOTE | 2025-05-11 03:14 | DVHHPRES ---
History of Present Illness Resident Creating Document: TEMO OROSCO RESIDENT History of Present Illness 35-year-old female patient reports having periumbilical and upper abdominal pain rating 10/10, which radiates to lower back, associated with shortness of breath, nausea and vomiting. Vomiting is not mixed with blood, recent food contents were present. The patient reports having constipation since last 4 days, she was given lactulose in the ER which made her pass several episodes of loose stools. She reports having occasional painful, fresh blood mixed stools and fr equency of urination. She is not aware of any thyroid disease. She denies any chest pain, fever or any other complaints. She had a sinus surgery in January. She also complains of having frequent headaches. Past medical history: Eczema, sinusitis, headaches, NAFLD Past surgical history: Sinus surgery (Dr. Coleman), dental surgery Family history: Paternal aunt had lung cancer, maternal aunt and cousin have breast cancers Allergies: Nitrofurantoin Menstrual history: Irregular, every 20-30 days, duration 5 to 7 days Smoking history: Used to smoke half pack a day, quit smoking 3 months ago after her sinus surgery Drug abuse: Vaping in the past Alcohol: Occasional Code status: Full code PCP: Dr. Marlow Review of Systems Allergies: Coded Allergies: Nitrofurantoin (Verified Allergy, Severe, 04/29/25) Exam Vital Signs Vital Signs Date Time Temp Pulse Resp B/P (MAP) Pulse Ox O2 Delivery O2 Flow Rate FiO2 05/11/25 01:40 97.4 87 16 122/79 (93) 99 97.4 05/10/25 22:36 Room Air Labs/Xrays Labs Test 05/10/25 22:08 Range/Units White Blood Count 7.4 4.4-10.8 10^3/uL Red Blood Count 4.35 4.0-5.20 10^6/uL Hemoglobin 12.1 L 12.2-16.2 g/dL Hematocrit 35.5 L 36.0-46.0 % Mean Corpuscular Volume 81.5 80.0-100.0 fL Mean Corpuscular Hemoglobin 27.8 L 28.0-32.0 pg Mean Corpuscular Hemoglobin Concent 34.1 32.0-36.0 g/dL Red Cell Distribution Width 14.0 11.8-14.3 % Platelet Count 325 140-450 10^3/uL Mean Platelet Volume 8.3 6.9-10.8 fL Neutrophils (%) (Auto) 45.2 37.0-80.0 % Lymphocytes (%) (Auto) 44.8 10.0-50.0 % Monocytes (%) (Auto) 7.1 0.0-12.0 % Eosinophils (%) (Auto) 2.5 0.0-7.0 % Basophils (%) (Auto) 0.4 0.0-2.0 % Neutrophils # (Auto) 3.4 1.6-8.6 10 ^3/uL Lymphocytes # (Auto) 3.3 0.4-5.4 10 ^3/uL Monocytes # (Auto) 0.5 0-1.3 10 ^3/uL Eosinophils # (Auto) 0.2 0-0.8 10 ^3/uL Basophils # (Auto) 0 0-0.2 10 ^3/uL Nucleated Red Blood Cells 0.1 % Sodium Level 136 136-145 mmol/L Potassium Level 3.4 L 3.5-5.1 mmol/L Chloride Level 102 98-107 mmol/L Carbon Dioxide Level 25 20-31 mmol/L Anion Gap 9 5-15 Blood Urea Nitrogen 10 9-23 mg/dL Creatinine 0.72 0.550-1.02 mg/dL Glomerular Filtration Rate Calc 113 >90 mL/min BUN/Creatinine Ratio 13.9 10.0-20.0 Serum Glucose 118 H 74-106 mg/dL Calcium Level 9.6 8.7-10.4 mg/dL Lipase 38 12-53 U/L Beta HCG, Quantitative 0.0 L 1.5-4.2 mIU/mL SEPSIS Sepsis Screen Date sepsis recognized/suspect: May 10, 2025 Time Sepsis recognized/suspect: 2150 Recent Procedure: No On Antibiotic Therapy: No Respiratory Rate >20: No Heart Rate >90: No Temp<36 C (96.8 F) or >38.3 C: No SBP <90 or MAP <65 mmHG: No New Acute Mental Status Change: No Is the patient on CPAP, BIPAP,: No Physician Orders Urinalysis (05/10/25 22:00) Saline Lock (05/10/25 22:00) Ct Ab Pel With Iv Con Only (05/11/25 01:12) Hydromorphone Injection (Dilaudid Inject (05/11/25 03:15) Sodium Chloride 0.9% (05/11/25 03:15) Ondansetron Hcl (Zofran) (05/11/25 03:15) Amylase (05/11/25 03:03) Vital Signs Date Time Temp Pulse Resp B/P (MAP) Pulse Ox O2 Delivery O2 Flow Rate FiO2 05/11/25 01:40 97.4 87 16 122/79 (93) 99 97.4 05/11/25 01:40 87 16 122/79 05/11/25 00:13 74 13 115/74 05/10/25 22:39 92 21 132/55 05/10/25 22:36 92 21 99 Room Air 05/10/25 22:36 98.4 92 21 132/55 (80) 99 98.4 05/10/25 21:47 97.4 89 18 135/81 100 97.4 Laboratory Tests Test 05/10/25 22:08 White Blood Count 7.4 10^3/uL (4.4-10.8) Medications Medications Dose Ordered Sig/[place] Route Start Time Stop Time Status Last Admin Dose Admin Morphine Sulfate 2 mg ONCE ONCE IV 05/10/25 22:00 05/10/25 22:02 DC 05/10/25 22:39 2 MG Morphine Sulfate 2 mg ONCE ONCE IV 05/11/25 01:45 05/11/25 01:46 DC 05/11/25 01:40 2 MG Ondansetron HCl 4 mg ONCE ONCE IV 05/11/25 01:45 05/11/25 01:46 DC 05/11/25 01:39 4 MG Sodium Chloride 1,000 ml @ 1,000 mls/hr Q1H ONCE IV 05/11/25 00:15 05/11/25 01:14 DC 05/11/25 00:14 1,000 MLS/HR Assessment/Plan Assessment/Plan Abdominal pain due to constipation/pancreatitis/UTI/PUD CT scan of the abdomen: Extensive retained colonic stool in a pattern of constipation with moderate rectal fecal impaction. -Lipase: 38, amylase ordered results pending -urinalysis ordered, results pending -UTI, diagnosed outpatient, continue Rocephin -IV fluid normal saline -Dilaudid 0.5 -ondansetron -MiraLax -pantoprazole Constipation TSH ordered MiraLax Urinary frequency: urinalysis ordered GI prophylaxis: Pantoprazole DVT prophylaxis: Not indicated Diet: NPO until further orders Goals of care discussed with the patient for more than 27 minutes: Full code status Case discussed with , patient and RN Plan discussed with: Patient, Other (RN) My Orders Orders - TEMO OROSCO Procedure Category Date Status Time Hydromorphone PHA 05/11/25 In Process Injection (Dilaudid 03:15 Sodium Chloride 0.9% PHA 05/11/25 In Process 03:15 Ondansetron Hcl PHA 05/11/25 In Process (Zofran) 03:15 Amylase LAB 05/11/25 In Process 03:03 Common Visit Codes: [id number] INP/OBS CARE (HIGH) Secondary Visit Codes: [id number] CARE PLAN 30 MINUTES TEMO OROSCO May 11, 2025 03:14
[2025-05-11] MEDS: ONDANSETRON HCL 4 MG/2 ML VIAL IM ONE (03:46)
[2025-05-11] MEDS: ACETAMINOPHEN 500 MG TAB or CAP PO ONE (03:46)
[2025-05-11] MEDS ORDERED: NITROGLYCERIN 0.4 MG SL TAB SL PRN (05:15)
[2025-05-11] MEDS ORDERED: MORPHINE SULFATE INJ 2 MG/ml SYRG IV PRN (05:15)
[2025-05-11] MEDS: GOLYTELY 4L KIT PO ONE (05:48)
[2025-05-11] MEDS: HYDROmorphone HCL 2 MG/ML VL/or syr IV ONE (05:49)
[2025-05-11] MEDS: SODIUM CHLORIDE 0.9% 1,000 ML IV SCH ×2 (05:49→15:34)
[2025-05-11] MEDS: cefTRIAXone 1GM/50ML D5W 50 ML IV SCH (06:30)
[2025-05-11] MEDS: ONDANSETRON HCL 4 MG/2 ML VIAL IV PRN (06:30)
[2025-05-11 07:12] LABS: Chloride 101 mmol/L (98-107); Potassium 3.7 mmol/L (3.5-5.1)
[2025-05-11 07:13] LABS: Anion Gap 8 (5-15); Calcium 9.9 mg/dL (8.7-10.4); Carbon Dioxide 26 mmol/L (20-31)
[2025-05-11 07:16] LABS: Hematocrit 35.1 % (36.0-46.0); Hemoglobin 11.8 g/dL (12.2-16.2); Mean Corpuscular Hemoglobin 27.3 pg (28.0-32.0); Mean Corpuscular Volume 81.5 fL (80.0-100.0); Nucleated Red Blood Cells % 0.0 %
[2025-05-11 07:18] LABS: BUN/Creatinine Ratio 16.1 (10.0-20.0); Blood Urea Nitrogen 10 mg/dL (9-23); Sodium 135 mmol/L (136-145)
[2025-05-11 07:19] LABS: Glucose 121 mg/dL (74-106)
[2025-05-11 07:58] VITALS: PULSE 87; RESP 20; O2SAT 96
[2025-05-11] MEDS: PANTOPRAZOLE 40 MG/10 ML VIAL INJ IV SCH (08:06)
[2025-05-11] MEDS: POLYETHYLENE GLYCOL 17 GM PWDR PO ONE (08:07)
[2025-05-11] MEDS: PANTOPRAZOLE 40 MG/10 ML VIAL INJ IV ONE (08:13)
[2025-05-11 08:51] LABS: Urine Protein, UAD TRACE (Negative)
[2025-05-11] MEDS ORDERED: OMEP-434 PO (09:18)
[2025-05-11] MEDS: HYDROmorphone HCL 2 MG/ML VL/or syr IV PRN (11:49)
[2025-05-11 12:26] VITALS: BP 112/66; PULSE 77; RESP 16; TEMP 98.1; O2SAT 99
[2025-05-11] MEDS: HYDROcodone-ACET 5/325MG TAB PO PRN (14:29)
--- NOTE | 2025-05-11 17:46 | DVHPNRES ---
Progress Note Date Seen: May 11, 2025 Resident Creating Document: ALBERT STANLEY RESIDENT Medical Necessity Reason Pt with a Central, PICC or Fol: No Subjective Review of Systems 35-year-old female patient reports having periumbilical and upper abdominal pain rating 10/10, which radiates to lower back, associated with shortness of breath, nausea and vomiting. Vomiting is not mixed with blood, recent food contents were present. The patient reports having constipation since last 4 days, she was given lactulose in the ER which made her pass several episodes of loose stools. She reports having occasional painful, fresh blood mixed stools and frequency of urination. She is not aware of any thyroid disease. She denies any chest pain, fever or any other complaints. She had a sinus surgery in January. She also complains of having frequent headaches. 05/11/25 Patient seen in holding. Patient appears alert x3, in mild distress, says she feels lot better than yesterday, the vitals are stable, she states that she had 4 episodes of diarrhea after being given MiraLax, she he had 1 episode of vomiting yesterday which was yellow and contained food material, patient reports heartburn occasionally and has used omeprazole for 30 days which helped. Patient was COVID positive 1 week back and had severe migraine for 13 days. Patient has menstrual periods are normally regular and last menstrual. She had heavy bleeding for 7 days with clots. Patient had a UTI last week and was given cephalexin for 7 days which she did not finish. CT shows Extensive retained colonic stool in a pattern of constipation with moderate rectal fecal impaction. Objective vital signs Vital Sign Date Time Temp Pulse Resp B/P (MAP) Pulse Ox O2 Delivery O2 Flow Rate FiO2 05/11/25 12:26 98.1 77 16 112/66 (81) 99 98.1 05/11/25 07:58 Room Air* 0 21 Total Intake and Output 05/10/25 05/10/25 05/11/25 15:00 23:00 07:00 Intake Total 1000 ml Balance 1000 ml medications Current Medications Medications Dose Ordered Sig/[place] Route Start Time Stop Time Status Last Admin Dose Admin Pantoprazole Sodium 40 mg DAILY IV 05/11/25 10:00 05/11/25 08:06 40 MG Ondansetron HCl 4 mg Q4HPRN PRN IV 05/11/25 05:15 05/11/25 06:30 4 MG Ceftriaxone Sodium 50 ml @ 100 mls/hr DAILY@09 IV 05/11/25 06:30 05/11/25 06:30 100 MLS/HR Sodium Biphosphate/ Sodium Phosphate 133 ml BID DC 05/11/25 22:00 Polyethylene Glycol 17 gm BID PO 05/11/25 22:00 Acetaminophen/ Hydrocodone Bitart 1 tab Q6HPRN PRN PO 05/11/25 14:15 Sodium Chloride 1,000 ml @ 100 mls/hr Q10H IV 05/11/25 15:30 05/11/25 15:34 100 MLS/HR Examination General: Patient alert and oriented in person, place and time. Patient following commands. HEENT: Normocephalic, atraumatic, moist mucous membranes Respiratory/pulmonary: Clear lungs bilaterally, vesicular murmurs present in almost all lung woods, no associated crackles or wheezes. Cardiovascular: Normal heart sounds S1 and S2 with no associated murmurs Abdomen: mild Diffuse abdominal tenderness Extremities: There is no peripheral edema present at the lower extremities. Peripheral Pulses: 3+ Radial (R). 3+ Radial (L). 3+ Dorsalis pedis (R). 3+ Dorsalis pedis(L) Skin: No rashes or pruritus, there is no sacral edema present at this time. Neurological: Intact cranial nerves with no focal neurologic deficits laboratory and microbiology Laboratory Tests 05/11/25 06:30 Test 05/11/25 06:30 Range/Units Serum Glucose 121 H 74-106 mg/dL Labs and/or images reviewed: Labs reviewed by me, Image(s) reviewed by me Problem List/Assessment/Plan Problem List/Assessment/Plan #Abdominal pain due to constipation #Ruled out pancreatitis # rule out SBO -CT scan of the abdomen: Extensive retained colonic stool in a pattern of constipation with moderate rectal fecal impaction. -Lipase: 38, amylase ordered results pending -urinalysis ordered, results pending - continue Rocephin - MiraLax b.i.d. -Zofran as needed -pain management with [place] -Protonix -IV fluid normal saline -ordered a Fleet enema -KUB, pending # Hypokalemia -repleted - monitor lab # ruled out UTI PPX: Protonix DVT PPX patient is ambulatory Diet: Clear liquid diet Goals of care addressed with the patient for more than 17 minutes full code status Case discussed with Dr. Priest Plan discussed with: Patient, Other (rn) My Orders My Orders Orders - ALBERT STANLEY RESIDENT Procedure Category Date Status Time Clear Liq Diet DIET 05/11/25 Transmitted Lunch Polyethylene Glycol PHA 05/11/25 In Process 17g Powder (Miralax 22:00 Hydrocodone-Acet PHA 05/11/25 In Process 5/325mg Tab ([place] 14:15 Kub Abdomen Single XY 05/12/25 Logged View 06:00 Date of Service: May 11, 2025 Billing Provider: NATHEN LYON MD Common Visit Codes: [id number] INP/OBS CARE(HIGH) ALBERT STANLEY RESIDENT May 11, 2025 17:46 NATHEN LYON MD May 14, 2025 00:49
[2025-05-11 18:05] VITALS: BP 118/53; PULSE 77; RESP 17; TEMP 98.1; O2SAT 99
[2025-05-11 18:30] VITALS: PULSE 74; RESP 16; O2SAT 98
[2025-05-11 20:41] VITALS: BP 120/71; PULSE 92; RESP 18; TEMP 98.3; O2SAT 99
[2025-05-11] MEDS: POLYETHYLENE GLYCOL 17 GM PWDR PO SCH (21:24)
[2025-05-11] MEDS: ACETAMINOPHEN 325 MG TAB PO ONE (21:24)
[2025-05-11] MEDS: FLEET MINERAL OIL ENEMA 133 ML PR SCH (21:28)
[2025-05-12] VITALS (7 sets, daily range): BP systolic 101–120; BP diastolic 63–84; PULSE 71–87; RESP 15–18; TEMP 97.9–98.4; O2SAT 97–99
[2025-05-12 07:37] LABS: Hematocrit 30.6 % (36.0-46.0); Hemoglobin 10.5 g/dL (12.2-16.2); Mean Corpuscular Hemoglobin 28.0 pg (28.0-32.0); Mean Corpuscular Volume 81.7 fL (80.0-100.0); Nucleated Red Blood Cells % 0.1 %
[2025-05-12 07:39] LABS: Anion Gap 8 (5-15); Carbon Dioxide 26 mmol/L (20-31); Potassium 3.6 mmol/L (3.5-5.1); Sodium 142 mmol/L (136-145)
[2025-05-12 07:45] LABS: BUN/Creatinine Ratio 8.5 (10.0-20.0); Glucose 88 mg/dL (74-106)
[2025-05-12 07:49] LABS: Blood Urea Nitrogen 5 mg/dL (9-23); Calcium 8.5 mg/dL (8.7-10.4); Chloride 108 mmol/L (98-107)
--- NOTE | 2025-05-12 08:28 | DVH ---
Exam: XY KUB ABDOMEN SINGLE VIEW Indication: FOLLOW UP CONSTIPATION Comparison: CT CT AB PEL WITH IV CON ONLY on DOS: 05/11/25, XY KUB ABDOMEN SINGLE VIEW on DOS: 05/10/25 Technique: 1 radiographic views of the abdomen. Findings: Nonobstructive bowel gas pattern noted. There is no definite evidence for pneumoperitoneum. No abnormal calcifications noted. Impression: Nonobstructive bowel gas pattern noted.
[2025-05-12] MEDS: FEXOFENADINE HCL 60 MG TAB PO ONE (10:11)
--- NOTE | 2025-05-12 16:31 | DVH ---
EXAM: XY CHEST PORTABLE TECHNIQUE: Single frontal chest radiograph CLINICAL HISTORY: pleuritic cp COMPARISON: XY CHEST PORTABLE on DOS: 03/06/25 Findings/Impression: Frontal chest radiograph demonstrates no acute osseous or superficial soft tissue abnormalities. The trachea is midline. The cardiac silhouette and mediastinum are within normal limits. No pneumothorax, pleural effusions, or consolidations.
--- NOTE | 2025-05-12 16:35 | DVHPNRES ---
Progress Note Date Seen: May 12, 2025 Resident Creating Document: ALBERT STANLEY RESIDENT Medical Necessity Reason Pt with a Central, PICC or Fol: No Subjective Review of Systems 35-year-old female patient reports having periumbilical and upper abdominal pain rating 10/10, which radiates to lower back, associated with shortness of breath, nausea and vomiting. Vomiting is not mixed with blood, recent food contents were present. The patient reports having constipation since last 4 days, she was given lactulose in the ER which made her pass several episodes of loose stools. She reports having occasional painful, fresh blood mixed stools and frequency of urination. She is not aware of any thyroid disease. She denies any chest pain, fever or any other complaints. She had a sinus surgery in January. She also complains of having frequent headaches. 05/11/25 Patient seen in holding. Patient appears alert x3, in mild distress, says she feels lot better than yesterday, the vitals are stable, she states that she had 4 episodes of diarrhea after being given MiraLax, she he had 1 episode of vomiting yesterday which was yellow and contained food material, patient reports heartburn occasionally and has used omeprazole for 30 days which helped. Patient was COVID positive 1 week back and had severe migraine for 13 days. Patient has menstrual periods are normally regular and last menstrual. She had heavy bleeding for 7 days with clots. Patient had a UTI last week and was given cephalexin for 7 days which she did not finish. CT shows Extensive retained colonic stool in a pattern of constipation with moderate rectal fecal impaction. 05/12/2025 Patient seen at bedside. Patient appears alert x3, in no distress, says she is feeling a lot better, her vitals are stable she states that she had 2-3 bowel movements which were pellet-like, feels like her head is foggy, feels like her tongue has swollen and was given 1 dose of [place]. She also complains of chest pressure and tightness for which chest x-ray was ordered. KUB resulted nonobstructive bowel gas pattern. Patient is given enemas, MiraLax. Rest of ROS is negative. She is changed to mechanical soft diet, and if tolerating well might be discharged tomorrow. Objective vital signs Vital Sign Date Time Temp Pulse Resp B/P (MAP) Pulse Ox O2 Delivery O2 Flow Rate FiO2 05/12/25 13:00 98.1 72 18 114/84 (94) 99 98.1 05/12/25 08:00 Room Air* 0 21 Total Intake and Output 05/11/25 05/11/25 05/12/25 15:00 23:00 07:00 Intake Total 50 ml 1175 ml Balance 50 ml 1175 ml medications Current Medications Medications Dose Ordered Sig/[place] Route Start Time Stop Time Status Last Admin Dose Admin Pantoprazole Sodium 40 mg DAILY IV 05/11/25 10:00 05/12/25 09:21 40 MG Ondansetron HCl 4 mg Q4HPRN PRN IV 05/11/25 05:15 05/11/25 06:30 4 MG Ceftriaxone Sodium 50 ml @ 100 mls/hr DAILY@09 IV 05/11/25 06:30 05/12/25 09:21 100 MLS/HR Sodium Biphosphate/ Sodium Phosphate 133 ml BID MS 05/11/25 22:00 05/12/25 10:11 133 ML Polyethylene Glycol 17 gm BID PO 05/11/25 22:00 05/12/25 09:21 17 GM Acetaminophen/ Hydrocodone Bitart 1 tab Q6HPRN PRN PO 05/11/25 14:15 Sodium Chloride 1,000 ml @ 100 mls/hr Q10H IV 05/11/25 15:30 05/12/25 11:30 100 MLS/HR Examination General: Patient alert and oriented in person, place and time. Patient following commands. HEENT: Normocephalic, atraumatic, moist mucous membranes Respiratory/pulmonary: Clear lungs bilaterally, vesicular murmurs present in almost all lung woods, no associated crackles or wheezes. Cardiovascular: Normal heart sounds S1 and S2 with no associated murmurs Abdomen: Abdomen nondistended, there is no pain to palpation in any of the abdominal quadrants, no palpable masses. Extremities: There is no peripheral edema present at the lower extremities. Peripheral Pulses: 3+ Radial (R). 3+ Radial (L). 3+ Dorsalis pedis (R). 3+ Dorsalis pedis(L) Skin: No rashes or pruritus, there is no sacral edema present at this time. Neurological: Intact cranial nerves with no focal neurologic deficits laboratory and microbiology Laboratory Tests 05/12/25 06:40 Test 05/12/25 06:40 Range/Units Serum Glucose 88 74-106 mg/dL Problem List/Assessment/Plan Problem List/Assessment/Plan # ruled out SBO # intractable nausea vomiting # diffuse dilation of colon likely [place] syndrome # Abdominal pain due to constipation # Ruled out pancreatitis -CT scan of the abdomen: Extensive retained colonic stool in a pattern of constipation with moderate rectal fecal impaction. -Lipase: 38, amylase 84 - continue Rocephin - MiraLax b.i.d. -Zofran as needed -pain management with [place] -Protonix -IV fluid normal saline -ordered a Fleet enema -KUB, shows nonobstructive bowel gas pattern # Hypokalemia -repleted - monitor lab # history of COVID - chest x-ray ordered, pending results # ruled out UTI PPX: Protonix DVT PPX patient is ambulatory Diet: Mechanical soft diet Goals of care addressed with the patient for more than 17 minutes full code status Case discussed with Dr. Mondragon Plan discussed with: Patient My Orders My Orders Orders - ALBERT STANLEY Procedure Category Date Status Time Kub Abdomen Single XY 05/12/25 Resulted View 07:24 Date of Service: May 12, 2025 Billing Provider: RIZWAN MONDRAGON MD Common Visit Codes: [id number] INP/OBS CARE(HIGH) ALBERT STANLEY May 12, 2025 16:35 RIZWAN MONDRAGON MD May 12, 2025 21:20
[2025-05-12] MEDS: ACETAMINOPHEN 325 MG TAB PO ONE (21:54)
--- NOTE | 2025-05-13 00:12 | DVH ---
COMPUTERIZED TOMOGRAPHY OF THE HEAD WITHOUT CONTRAST REASON FOR STUDY: Migraine with visual changes COMPARISON: None TECHNIQUE: Helical tomographic scans were obtained through the brain. 2-D coronal and sagittal refor matted images are provided. Radiation optimization: All CT scans at this facility use at least one of these dose optimization techniques: Automated exposure control mA and/or kV adjustment per patient s ize (includes targeted exams where dose is matched to clinical indication) or iterative reconstructio n. RADIATION DOSE: CTDI: 55 mGy DLP: 973 mGy-cm FINDINGS: No suspicious intracranial hyperdensity to suggest acute blood. There is no mass effect n or midline shift. There is no hydrocephalus. The suprasellar cistern is intact. The calvarium is inta ct. The visualized mastoid air cells are clear. There is mild mucosal thickening in the maxillary si nuses. IMPRESSION: No acute intracranial abnormality. Mild mucosal thickening in bilateral maxillary sinuses. Correlate clinically for acute sinusitis.
[2025-05-13 01:00] VITALS: BP 123/76; PULSE 75; RESP 16; TEMP 98.1; O2SAT 99
[2025-05-13 05:00] VITALS: BP 118/82; PULSE 74; RESP 14; TEMP 97.9; O2SAT 98
[2025-05-13 09:00] VITALS: BP 129/84; PULSE 83; RESP 17; TEMP 97.3; O2SAT 98
[2025-05-13 13:00] VITALS: BP 131/79; PULSE 74; RESP 17; TEMP 97.4; O2SAT 100
[2025-05-13] MEDS ORDERED: LORA-622 PO (14:56)
[2025-05-13] MEDS ORDERED: AUG875T PO (14:56)
[2025-05-13 15:01] VITALS: BP_SYST 119; BP_SYST 128; BP_DIAS 64; BP_DIAS 82; PULSE 68; RESP 16; TEMP 98.8; O2SAT 98
[2025-05-13 17:00] VITALS: BP 119/82; PULSE 64; RESP 16; TEMP 98.1; O2SAT 97
--- NOTE | 2025-05-14 11:57 | ECG ---
[facility] Test Date: 2025-05-12 Test Time: 19:39:05 Pat Name: DOUG PETTY Department: Respiratoy Room: 0245 B Gender: F Field Service Coordinator: LEXI : 1990 Requested By: CONSTANTIN RECINOS Order Number: [id number] Reading MD: Desmond Arcos Measurements Intervals [place] Rate: 82 P: 67 KS: 147 QRS: 59 QRSD: 81 T: 1 QT: 379 QTc: 443 Interpretive Statements Sinus rhythm Electronically Signed On 05-14-2025 21:41:49 PDT by Desmond Arcos Please click the below link to view image of tracing.
== END 2025-05-13 18:05 | disposition home or self-care (01) | DRG 254 ==
LOC: ER 21:44 → OVERFLOW 05-11 05:12 → EAST 05-11 05:14 → OVERFLOW 05-11 05:14 → EAST 05-11 18:05
PROVIDERS: ADMIT Student in an Organized Health Care Education/Training Program; ATTEND Student in an Organized Health Care Education/Training Program
DX: K59.81 Ogilvie syndrome (principal); E87.6 Hypokalemia; K56.41 Fecal impaction; K21.9 Gastro-esophageal reflux disease without esophagitis; Z80.1 Family history of malignant neoplasm of trachea, bronchus and lung; Z80.3 Family history of malignant neoplasm of breast; Z88.3 Allergy status to other anti-infective agents; Z86.16 Personal history of COVID-19; Z79.899 Other long term (current) drug therapy
CPT/HCPCS: 36415; 70450; 71045; 74018; 74177; 80048; 81001; 82150; 82550; 83036; 83690; 84439; 84443; 84702; 85025; 93005; 96361; 96372; 96374; 96375; G0378; J2405; J2470